=== PATIENT | male | born 1950 | race Caucasian/White ===

== ENCOUNTER 2017-05-08 11:54 | Inpatient (IN) | payer BC ==
[2017-05-08] VITALS (10 sets, daily range): BP systolic 150–182; BP diastolic 81–107; PULSE 64–98; RESP 16–22; TEMP 97.6–98.1; O2SAT 95–99
[~2017-05-08] VITALS: Ht 175.3 cm; Wt 75.0 kg
[~2017-05-08 11:54] MED LIST: AMLO5TAB2 PO; BLOOD GLUCOSE M1 KIT; GLUCTES27 SQ; HYDR12.56 PO; LANCETS1 MI1 SQ
[2017-05-08] MEDS ORDERED: SODIUM CHLOR 0.9% 1000 ML INJ 1,000 ML IV ONE (12:32)
--- NOTE | 2017-05-08 12:35 | PD ---
HPI Chief Complaint: General Weakness Time Seen by Provider: 12:20 Travel History International Travel<30 days: No Contact w/Intl Traveler<30days: No Traveled to known affect area: No History of Present Illness HPI 67-year-old male presents to the emergency department for evaluation of headache , dizziness, syncopal episodes. Patient states he had the influenza vaccination on , May 02, 2017. He states he felt fine at that time. However, the next day, he started getting a left-sided headache with nausea and vomiting as well as dizziness. He states on Saturday, he woke up in the morning, got out of bed and states that he "blacked out". He states that he got up and had another syncopal episode. Patient states that he went to the bathroom and vomited several times. Patient denies any history of similar symptoms in the past. He states that yesterday was the first time that he was able to get up and walk as well as not vomit. Patient states the dizziness is worse with movement. He states it feels like the room is spinning around him. He states the dizziness is relieved if he lays still. Patient denies any syncopal episodes since Saturday, 4 days ago. No vomiting in the past 2 days. Patient states the headache is currently 3/10. He has taken Advil with improvement in the headache. Patient denies any fevers or chills. He denies any chest pain. He states he will get short of breath with the dizziness. He denies any abdominal pain. No constipation or diarrhea. Patient reports history of hypertension and is currently on amlodipine and hydrochlorothiazide. He reports history prediabetes, but is not currently on any diabetic medications and is controlled with diet and exercise. PFSH Past Medical History Cardiovascular Problems: Yes (htn) Cerebrovascular Accident: No Coronary Artery Disease: No Diabetes: No Dialysis: No Diminished Hearing: No Hypertension: Yes Tetanus Vaccination: > 5 Years Influenza Vaccination: Yes Social History Alcohol Use: Yes (ocassionally) Tobacco Use: No (quit) Substance Use: No Allergies-Medications (Allergen,Severity, Reaction): Coded Allergies: No Known Allergies (Verified Adverse Reaction, Unknown, 05/08/17) Reported Meds & Prescriptions Reported Meds & Active Scripts Active Amlodipine (Amlodipine Besylate) 5 Mg Tab 5 Mg PO DAILY Hydrochlorothiazide 12.5 Mg Tab 12.5 Mg PO DAILY Review of Systems Except as stated in HPI: all other systems reviewed are Neg Physical Exam Narrative GENERAL: Well-nourished, well-developed male patient, ambulatory. Afebrile. SKIN: Focused skin assessment warm/dry. HEAD: Normocephalic. Atraumatic. EYES: No scleral icterus. No injection or drainage. PERRLA. EOM intact. ENT: Mucosa pink and moist. No erythema or exudates. No uvular edema. No uvular , palatal, or tonsillar deviation. Airway patent. Nasal turbinates appear normal without nasal blood, purulent drainage or septal hematoma. Bilateral tympanic membranes are clear without erythema or perforation. NECK: Supple, trachea midline. No JVD or lymphadenopathy. CARDIOVASCULAR: Regular rate and rhythm without murmurs, gallops, or rubs. RESPIRATORY: Breath sounds equal bilaterally. No accessory muscle use. Lungs sounds are clear to auscultation. GASTROINTESTINAL: Abdomen soft, non-tender, nondistended. MUSCULOSKELETAL: No cyanosis, or edema. Bilateral upper and lower extremity strength 5/5. All extremities are neurovascularly intact BACK: Nontender without obvious deformity. No CVA tenderness. NEUROLOGICAL: Awake and alert. Cranial nerves II through XII intact. Motor and sensory grossly within normal limits. Five out of 5 muscle strength in all muscle groups. Normal speech. Finger to nose is normal bilaterally. Heel-to- hartley is normal bilaterally. Data Data Last Documented VS Vital Signs Date Time Temp Pulse Resp B/P (MAP) Pulse Ox O2 Delivery O2 Flow Rate FiO2 05/08/17 14:16 97.9 72 17 165/85 (111) 98 Room Air Orders Orders Electrocardiogram (05/08/17 12:32) Complete Blood Count With Diff (05/08/17 12:32) Comprehensive Metabolic Panel (05/08/17 12:32) Magnesium (Mg) (05/08/17 12:32) Ckmb (Isoenzyme) Profile (05/08/17 12:32) Troponin I (05/08/17 12:32) Act Partial Throm Time (Ptt) (05/08/17 12:32) Prothrombin Time / Inr (Pt) (05/08/17 12:32) Urinalysis - C+S If Indicated (05/08/17 12:32) Ct Brain W/O Iv Contrast(Rout) (05/08/17 12:32) Ecg Monitoring (05/08/17 12:32) Iv Access Insert/Monitor (05/08/17 12:32) Oximetry (05/08/17 12:32) Meclizine (Antivert) (05/08/17 12:45) Ondansetron Inj (Zofran Inj) (05/08/17 12:45) Sodium Chloride 0.9% Flush (Ns Flush) (05/08/17 12:45) Sodium Chlor 0.9% 1000 Ml Inj (Ns 1000 M (05/08/17 12:32) Orthostatic Vital Signs (05/08/17 12:32) Metoclopramide Inj (Reglan Inj) (05/08/17 12:45) Diphenhydramine Inj (Benadryl Inj) (05/08/17 12:45) Mri Brain W&W/O Contrast (05/08/17 ) Dexamethasone Inj (Decadron Inj) (05/08/17 14:00) Consult Neurosurgery (05/08/17 ) Admit Order (Ed Use Only) (05/08/17 14:25) Labs Laboratory Tests Test 05/08/17 12:45 White Blood Count 10.4 TH/MM3 Red Blood Count 5.67 MIL/MM3 Hemoglobin 14.7 GM/DL Hematocrit 43.6 % Mean Corpuscular Volume 76.9 FL Mean Corpuscular Hemoglobin 26.0 PG Mean Corpuscular Hemoglobin Concent 33.7 % Red Cell Distribution Width 15.2 % Platelet Count 260 TH/MM3 Mean Platelet Volume 8.3 FL Neutrophils (%) (Auto) 80.6 % Lymphocytes (%) (Auto) 11.9 % Monocytes (%) (Auto) 7.2 % Eosinophils (%) (Auto) 0.1 % Basophils (%) (Auto) 0.2 % Neutrophils # (Auto) 8.4 TH/MM3 Lymphocytes # (Auto) 1.2 TH/MM3 Monocytes # (Auto) 0.7 TH/MM3 Eosinophils # (Auto) 0.0 TH/MM3 Basophils # (Auto) 0.0 TH/MM3 CBC Comment DIFF FINAL Differential Comment Prothrombin Time 11.1 SEC Prothromb Time International Ratio 1.0 RATIO Activated Partial Thromboplast Time 25.5 SEC Blood Urea Nitrogen 23 MG/DL Creatinine 1.48 MG/DL Random Glucose 250 MG/DL Total Protein 8.6 GM/DL Albumin 3.3 GM/DL Calcium Level 9.5 MG/DL Magnesium Level 2.0 MG/DL Alkaline Phosphatase 85 U/L Aspartate Amino Transf (AST/SGOT) 23 U/L Alanine Aminotransferase (ALT/SGPT) 24 U/L Total Bilirubin 0.4 MG/DL Sodium Level 132 MEQ/L Potassium Level 3.3 MEQ/L Chloride Level 98 MEQ/L Carbon Dioxide Level 22.0 MEQ/L Anion Gap 12 MEQ/L Estimat Glomerular Filtration Rate 48 ML/MIN Total Creatine Kinase 75 U/L Troponin I LESS THAN 0.02 NG/ML MDM Medical Decision Making Medical Screen Exam Complete: Yes Emergency Medical Condition: Yes Medical Record Reviewed: Yes Interpretation(s) CT brain - CONCLUSION: 1. Large area of low attenuation throughout the left cerebellum concerning for underlying mass and adjacent vasogenic edema. Acute infarction is felt to be less likely. Contrasted MRI recommended. 2. Chronic ischemic small vessel vasculopathy. Differential Diagnosis Vertigo versus intracranial abnormality versus electrolyte abnormality versus dehydration versus ACS Narrative Course 67-year-old male presents to the emergency department for evaluation of dizziness, headache, vomiting, syncopal episode 2. EKG, CBC, CMP, magnesium, CK, troponin, PT/INR, PTT, UA are ordered and pending. CT of the brain is ordered and pending. Orthostatic vital signs are ordered and pending. Patient is given normal saline 1 L IV bolus, Reglan 10 mg IV, Benadryl 25 mg IV. Patient is given meclizine 25 mg by mouth. EKG shows sinus rhythm, heart rate 73, no acute ST changes. CBC shows no acute abnormality. CMP shows slight hypokalemia at 3.3, BUN 23, creatinine 1.48, glucose 250. Magnesium is 2.0. CK is 75. Troponin is less than 0.02. Coags are unremarkable. UA is pending. CT of the brain shows large area of low attenuation throughout the left cerebellum concerning for underlying mass and adjacent vasogenic edema. Acute infarction is felt to be less likely. Contrasted MRI recommended; Chronic ischemic small vessel vasculopathy. 1400 - I spoke with ALEJANDRA Beckford for Dr. Story, neurosurgeon. She recommends admit to critical care, [facility], consult Dr. Story. Patient is given Decadron 10 mg IV. MRI with and without contrast is ordered and pending. Dr. Chu accepted admission. Diagnosis Primary Impression: Cerebellar mass Admitting Information Admitting Physician Requests: Admit Erica Villagran May 08, 2017 12:35
[2017-05-08] MEDS ORDERED: SODIUM CHLORIDE 0.9% FLUSH 10 ML FLUSH IVF PRN (12:45)
[2017-05-08] MEDS ORDERED: METOCLOPRAMIDE HCL 10 MG/2 ML VIAL IV PUSH ONE (12:45)
[2017-05-08] MEDS ORDERED: ONDANSETRON HCL 4 MG/2 ML VIAL IVP ONE (12:45)
[2017-05-08] MEDS ORDERED: diphenhydrAMINE HCL 50 MG/ML VIAL IV PUSH ONE (12:45)
[2017-05-08] MEDS ORDERED: MECLIZINE HCL 25 MG TAB PO ONE (12:45)
[2017-05-08 13:26] LABS: AUTOMATED NEUTROPHIL # 8.4 TH/MM3 (1.8-7.7); BASOPHIL % 0.2 % (0.0-2.0); EOSINOPHIL % 0.1 % (0.0-4.0); HEMATOCRIT 43.6 % (39.0-51.0); HEMOGLOBIN 14.7 GM/DL (13.0-17.0); LYMPH % 11.9 % (9.0-44.0); LYMPHOCYTE # 1.2 TH/MM3 (1.0-4.8); MEAN CELL VOLUME 76.9 FL (80.0-100.0); MEAN CORPUSCULAR HGB CONC 33.7 % (32.0-36.0); MEAN PLATELET VOLUME 8.3 FL (7.0-11.0); MONO % 7.2 % (0.0-8.0); MONOCYTE # 0.7 TH/MM3 (0-0.9); NEUT % 80.6 % (16.0-70.0); PLATELET COUNT 260 TH/MM3 (150-450); RED BLOOD COUNT 5.67 MIL/MM3 (4.50-5.90); RED CELL DISTRIBUTION WIDTH 15.2 % (11.6-17.2); WHITE BLOOD COUNT 10.4 TH/MM3 (4.0-11.0)
[2017-05-08 13:38] LABS: ALBUMIN 3.3 GM/DL (3.4-5.0); ALT (GPT) 24 U/L (12-78); AST (GOT) 23 U/L (15-37); BLOOD UREA NITROGEN 23 MG/DL (7-18); CALCIUM 9.5 MG/DL (8.5-10.1); CHLORIDE 98 MEQ/L (98-107); CREATININE 1.48 MG/DL (0.60-1.30); GLOMERULAR FILTRATION RATE 48 ML/MIN (>89); GLUCOSE,RANDOM 250 MG/DL (74-106); SODIUM (NA) 132 MEQ/L (136-145)
[2017-05-08 13:42] LABS: ALKALINE PHOSPHATASE 85 U/L (45-117); TOTAL BILIRUBIN ADULT 0.4 MG/DL (0.2-1.0); TOTAL PROTEIN 8.6 GM/DL (6.4-8.2); TROPONIN I LESS THAN 0.02 NG/ML (0.02-0.05)
[2017-05-08 13:46] LABS: PROTHROMBIN TIME - PATIENT 11.1 SEC (9.8-11.6)
--- NOTE | 2017-05-08 13:54 | RADRPT ---
EXAM DATE/TIME: 05/08/2017 13:21 [facility] COMPARISON: No previous studies available for comparison. INDICATIONS : Nausea, vomiting, syncope after getting flu shot 4 days ago RADIATION DOSE: 56.35 CTDIvol (mGy) MEDICAL HISTORY : Hypertension. SURGICAL HISTORY : None. ENCOUNTER: Initial ACUITY: 4 - 6 days PAIN SCALE: 0/10 LOCATION: cranial TECHNIQUE: Multiple contiguous axial images were obtained of the head. Using automated exposure control and adj ustment of the mA and/or kV according to patient size, radiation dose was kept as low as reasonably a chievable to obtain optimal diagnostic quality images. DICOM format image data is available electro nically for review and comparison. FINDINGS: CEREBRUM: The ventricles are normal for age. Scattered areas of low attenuation throughout the white matter. N o evidence of midline shift, mass lesion, hemorrhage or acute infarction. No extra-axial fluid colle ctions are seen. POSTERIOR FOSSA: Large area of low attenuation in the left cerebellum. Slight mass effect with slight compression upon the fourth ventricle. EXTRACRANIAL: The visualized portion of the orbits is intact. SKULL: The calvaria is intact. No evidence of skull fracture. CONCLUSION: 1. Large area of low attenuation throughout the left cerebellum concerning for underlying mass and ad jacent vasogenic edema. Acute infarction is felt to be less likely. Contrasted MRI recommended. 2. Chronic ischemic small vessel vasculopathy. Benedicto Mabry MD on May 08, 2017 at 13:50 Board Certified Radiologist. This report was verified electronically.
[2017-05-08] MEDS ORDERED: DEXAMETHASONE SOD PHOS 20 MG/5 ML VIAL IV PUSH ONE (14:00)
[2017-05-08] MEDS ORDERED: amLODIPine BESYLATE 5 MG TAB PO SCH (14:30)
[2017-05-08] MEDS ORDERED: HYDROCHLOROTHIAZIDE 12.5 MG CAP PO SCH (14:30)
[2017-05-08] MEDS ORDERED: SODIUM CHLOR 0.9% 1000 ML INJ 1,000 ML IV SCH (14:31)
--- NOTE | 2017-05-08 14:36 | HHI.HP ---
HPI Service Critical Care Medicine Primary Care Physician LEESA Cordero Admission Diagnosis mass left cerebellum Diagnosis: (1) Headache Diagnosis: Principal (2) Dizziness Diagnosis: Principal (3) Cerebellar mass Diagnosis: Principal Chief Complaint: Headache and dizziness, syncopre. Travel History International Travel<30 Days: No Contact w/Intl Traveler <30 Da: No Traveled to Known Affected Are: No History of Present Illness 69 y/o man has developed syncope and dizziness associated with a headache. CT head reveals large left posterior fossa mass. Past Family Social History Allergies: Coded Allergies: No Known Allergies (Verified Allergy, Unknown, 05/08/17) Past Medical History Past Medical History Cardiovascular Problems: Yes (htn) Cerebrovascular Accident: No Coronary Artery Disease: No Diabetes: No Dialysis: No Diminished Hearing: No Hypertension: Yes Tetanus Vaccination: > 5 Years Influenza Vaccination: Yes Social History Alcohol Use: Yes (ocassionally) Tobacco Use: No (quit) Substance Use: No Allergies-Medications Allergies-Medications (Allergen,Severity, Reaction): Coded Allergies: No Known Allergies (Verified Adverse Reaction, Unknown, 05/08/17) Reported Meds & Prescriptions Reported Meds & Active Scripts Active Amlodipine (Amlodipine Besylate) 5 Mg Tab 5 Mg PO DAILY Hydrochlorothiazide 12.5 Mg Tab 12.5 Mg PO DAILY Physical Exam Vital Signs Vital Signs Date Time Temp Pulse Resp B/P (MAP) Pulse Ox O2 Delivery O2 Flow Rate FiO2 05/08/17 14:16 97.9 72 17 165/85 (111) 98 Room Air 05/08/17 12:46 17 99 Room Air 05/08/17 12:45 76 17 167/81 (109) 80 16 158/82 (107) 76 17 150/91 (110) 05/08/17 12:11 86 17 05/08/17 11:58 97.6 98 22 179/107 (131) 98 Physical Exam PE: HEAD: Normocephalic. Atraumatic. EYES: No scleral icterus. No injection or drainage. PERRLA. EOM intact. ENT: Mucosa pink and moist. No erythema or exudates. No uvular edema. No uvular , palatal, or tonsillar deviation. Airway patent. Nasal turbinates appear normal without nasal blood, purulent drainage or septal hematoma. Bilateral tympanic membranes are clear without erythema or perforation. NECK: Supple, trachea midline. Airway widely patent. CARDIOVASCULAR: Regular rate and rhythm without murmurs, gallops, or rubs. No JVD. RESPIRATORY: Breath sounds equal bilaterally. No accessory muscle use. Lungs sounds clear. No adventitious sounds. GASTROINTESTINAL: Abdomen soft, non-tender, nondistended. BS active. MUSCULOSKELETAL: No cyanosis, or edema. Well perfsued. NEUROLOGICAL: Awake and alert. Cranial nerves II through XII intact. Motor and sensory grossly within normal limits. Five out of 5 muscle strength in all muscle groups. Normal speech. Finger to nose is normal bilaterally. Heel-to- hartley is normal bilaterally. Bilateral upper and lower extremity strength 5/5. Laboratory Laboratory Tests Test 05/08/17 12:45 White Blood Count 10.4 Red Blood Count 5.67 Hemoglobin 14.7 Hematocrit 43.6 Mean Corpuscular Volume 76.9 Mean Corpuscular Hemoglobin 26.0 Mean Corpuscular Hemoglobin Concent 33.7 Red Cell Distribution Width 15.2 Platelet Count 260 Mean Platelet Volume 8.3 Neutrophils (%) (Auto) 80.6 Lymphocytes (%) (Auto) 11.9 Monocytes (%) (Auto) 7.2 Eosinophils (%) (Auto) 0.1 Basophils (%) (Auto) 0.2 Neutrophils # (Auto) 8.4 Lymphocytes # (Auto) 1.2 Monocytes # (Auto) 0.7 Eosinophils # (Auto) 0.0 Basophils # (Auto) 0.0 CBC Comment DIFF FINAL Differential Comment Prothrombin Time 11.1 Prothromb Time International Ratio 1.0 Activated Partial Thromboplast Time 25.5 Blood Urea Nitrogen 23 Creatinine 1.48 Random Glucose 250 Total Protein 8.6 Albumin 3.3 Calcium Level 9.5 Magnesium Level 2.0 Alkaline Phosphatase 85 Aspartate Amino Transf (AST/SGOT) 23 Alanine Aminotransferase (ALT/SGPT) 24 Total Bilirubin 0.4 Sodium Level 132 Potassium Level 3.3 Chloride Level 98 Carbon Dioxide Level 22.0 Anion Gap 12 Estimat Glomerular Filtration Rate 48 Total Creatine Kinase 75 Troponin I LESS THAN 0.02 Result Diagram: 05/08/17 1245 05/08/17 1245 Caprini VTE Risk Assessment Caprini VTE Risk Assessment: Mod/High Risk (score >= 2) Caprini Risk Assessment Model Point Value = 1 Point Value = 2 Point Value = 3 Point Value = 5 Age 41-60 Minor surgery BMI > 25 kg/m2 Swollen legs Varicose veins or History of unexplained or recurrent spontaneous Oral contraceptives or hormone replacement Sepsis (< 1 month) Serious lung disease, including pneumonia (< 1 month) Abnormal pulmonary function Acute myocardial infarction Congestive heart failure (< 1 month) History of inflammatory bowel disease Medical patient at bed rest Age 61-74 Arthroscopic surgery Major open surgery (> 45 min) Laparoscopic surgery (> 45 min) Malignancy Confined to bed (> 72 hours) Immobilizing plaster cast Central venous access Age >= 75 History of VTE Family history of VTE Factor V Leiden Prothrombin [id number] Lupus anticoagulant Anticardiolipin antibodies Elevated serum homocysteine Heparin-induced thrombocytopenia Other congenital or acquired thrombophilia Stroke (< 1 month) Elective arthroplasty Hip, pelvis, or leg fracture Acute spinal cord injury (< 1 month) Prophylaxis Regimen Total Risk Factor Score Risk Level Prophylaxis Regimen 0-1 Low Early ambulation 2 Moderate Order ONE of the following: *Sequential Compression Device (SCD) *Heparin 5000 units SQ BID 3-4 Higher Order ONE of the following medications: *Heparin 5000 units SQ TID *Enoxaparin/Lovenox 40 mg SQ daily (WT < 150 kg, CrCl > 30 mL/min) *Enoxaparin/Lovenox 30 mg SQ daily (WT < 150 kg, CrCl > 10-29 mL/min) *Enoxaparin/Lovenox 30 mg SQ BID (WT < 150 kg, CrCl > 30 mL/min) AND/OR *Sequential Compression Device (SCD) 5 or more Highest Order ONE of the following medications: *Heparin 5000 units SQ TID (Preferred with Epidurals) *Enoxaparin/Lovenox 40 mg SQ daily (WT < 150 kg, CrCl > 30 mL/min) *Enoxaparin/Lovenox 30 mg SQ daily (WT < 150 kg, CrCl > 10-29 mL/min) *Enoxaparin/Lovenox 30 mg SQ BID (WT < 150 kg, CrCl > 30 mL/min) AND *Sequential Compression Device (SCD) Assessment and Plan Problem List: (1) Cerebellar mass ICD Code: G93.89 - Other specified disorders of brain Status: Acute (2) Dizziness ICD Code: R42 - Dizziness and giddiness (3) Headache ICD Code: R51 - Headache Assessment and Plan Plan: 1. Mannitol. 2. Decadron. 3. Seizure precautions. 4. CT for somnolence. 5. Pepcid. 6. Avid chemical DVT px. 7. SCDs. Overall impression: New large left cerebellar mass. Workup in progress. Homar Chu MD May 08, 2017 14:36
[2017-05-08] MEDS ORDERED: CHLORHEXIDINE GLUCONATE 2 % 1 PACK (2 CLOTHS) TOP PRN (14:45)
[2017-05-08] MEDS ORDERED: ONDANSETRON HCL 4 MG/2 ML VIAL IV PUSH PRN (14:45)
[2017-05-08] MEDS ORDERED: MANNITOL INJ 250 ML IV ONE ×2 (14:45)
[2017-05-08] MEDS ORDERED: SODIUM CHLORIDE 0.9% FLUSH 10 ML FLUSH IV FLUSH PRN (14:45)
[2017-05-08] MEDS ORDERED: MISCELLANEOUS NURSING INFORMATION XX SCH (14:45)
[2017-05-08] MEDS ORDERED: ACETAMINOPHEN 325 MG TAB PO PRN (14:45)
[2017-05-08] MEDS ORDERED: RESP: ALBUTEROL 2.5 MG/IPRATROPIUM 0.5 MG NEB (PRN) INH (14:45)
[2017-05-08] MEDS ORDERED: BISACODYL 10 MG SUPP RECTAL PRN (14:45)
[2017-05-08] MEDS ORDERED: MAGNESIUM HYDROXIDE SUSP 30 ML CUP PO PRN (14:45)
[2017-05-08] MEDS ORDERED: LACTULOSE SYRUP 20 GM/30 ML CUP PO PRN (14:45)
[2017-05-08] MEDS ORDERED: SENNOSIDES 8.6 MG TAB PO PRN (14:45)
[2017-05-08 15:05] LABS: BACTERIA, URINE FEW /hpf; BILIRUBIN, URINE NEG (NEG); BLOOD, URINE SMALL (NEG); GLUCOSE,URINE NEG (NEG); KETONE, URINE NEG (NEG); NITRITE,URINE NEG (NEG); PH, URINE 6.5 (5.0-8.5); URINE COLOR LIGHT-YELLOW (YELLW/STRAW); URINE LEUKOCYTE ESTERASE LARGE (NEG)
[2017-05-08] MEDS ORDERED: GADODIAMIDE PF 287 MG/ML 5 ML VIAL (for RAD MRI) IV PUSH ONE (15:39)
--- NOTE | 2017-05-08 16:11 | RADRPT ---
EXAM DATE/TIME: 05/08/2017 15:07 [facility] COMPARISON: CT BRAIN W/O CONTRAST, May 08, 2017, 13:21. INDICATIONS : Mass. CONTRAST: 15 cc Omniscan (gadodiamide) IV MEDICAL HISTORY : Hypertension. SURGICAL HISTORY : Left leg. ENCOUNTER: Initial ACUITY: 2 day PAIN SCORE: 2/10 LOCATION: head TECHNIQUE: Multiplanar, multisequence MRI of the brain was performed both prior to and following the administrat ion of paramagnetic contrast. FINDINGS: There is an enlarged area of restricted diffusion involving the left cerebellar hemisphere, PICA dist ribution. The right cerebellar hemisphere is unremarkable. There is no supratentorial restricted diffusion Moderate periventricular white matter changes are noted. Ventricle size is appropriate. There are n o extra-axial fluid collections appreciated. There is minimal gyriform enhancement left cervical hemisphere thought to be related to subacute infa rct. Mass or artery is small. CONCLUSION: Subacute infarct left cerebellar hemisphere PICA distribution with minimal mass effect on the fourth ventricle. MRI could be used to follow to assure this is resolving as an infarct. Mtaheus Walsh MD FACR on May 08, 2017 at 16:06 Board Certified Radiologist. This report was verified electronically.
--- NOTE | 2017-05-08 16:25 | PD.CONS ---
(London Story MD) HPI Consult Requested By Primary Care Physician LEESA Cordero (London Story MD) Service NRS Consult Requested By ED PHysician Reason for Consult possible cerebellar mass History of Present Illness Mr. Segura is a 67 year old male who comes today with complaints of dizziness and gait difficulties. He reports he received flu vaccine on . The following day he complained of nausea and not feeling well. Saturday he had a syncopal episode and was not able to walk. He has since been having difficulty walking and progressive headaches. He denies focal weakness, dysarthria, dysphagia, seizures, fevers or chills. An initial CT Head showed signal changes in the left cerebellar possible mass. An MRI w/wo contrast shows subacute ischemic infarct without evidence of mass lesions, but with mass effect on the fourth ventricle. A neurosurgical evaluation was requested. (Neris Glover) Review of Systems Constitutional: COMPLAINS OF: Dizziness, DENIES: Fever, Chills Eyes: DENIES: Diplopia, Vision loss Respiratory: DENIES: Apneas Cardiovascular: DENIES: Chest pain Gastrointestinal: COMPLAINS OF: Nausea, DENIES: Abdominal pain Genitourinary: DENIES: Urinary incontinence Neurologic: COMPLAINS OF: Abnormal gait, Headache, Poor Balance Psychiatric: DENIES: Hallucinations (Neris Glover) Past Family Social History Allergies: Coded Allergies: No Known Allergies (Verified Allergy, Unknown, 05/08/17) Past Medical History Hypertension chronic right shoulder and cervical pain Reported Medications reviewed EMR Active Ordered Medications Current Medications Medications (Trade) Dose Ordered Sig/Monica Route PRN Reason Start Time Stop Time Status Last Admin Dose Admin Sodium Chloride 1,000 ml @ 10 mls/hr Q24H IV 05/08/17 14:31 05/08/17 15:38 Sodium Chloride (NS Flush) 2 ml UNSCH PRN IV FLUSH FLUSH AFTER USING IV ACCESS 05/08/17 14:45 Sodium Chloride (NS Flush) 2 ml BID IV FLUSH 05/08/17 21:00 Acetaminophen (Tylenol) 650 mg Q6H PRN PO PAIN 1-10 AND/OR FEVER >101F 05/08/17 14:45 Pantoprazole Sodium (Protonix) 40 mg DAILY PO 05/09/17 09:00 Ondansetron HCl (Zofran Inj) 4 mg Q6H PRN IV PUSH NAUSEA OR VOMITING 05/08/17 14:45 Albuterol/ Ipratropium (Duoneb Neb) 1 ampule Q4HR NEB PRN INH WHEEZING 05/08/17 14:45 Miscellaneous Information 1 Q361D XX 05/08/17 14:45 Chlorhexidine Gluconate (Chlorhexidine 2% Cloth) 3 pack Taper DAILY@04 TOP 05/09/17 04:00 05/05/18 03:59 Chlorhexidine Gluconate (Chlorhexidine 2% Cloth) 3 pack UNSCH PRN TOP HYGIENIC CARE 05/08/17 14:45 Senna/Docusate Sodium (Alice-Colace) 1 tab BID PO 05/08/17 21:00 Magnesium Hydroxide (Milk Of Magnesia Liq) 30 ml Q12H PRN PO Mild constipation 05/08/17 14:45 Sennosides (Senokot) 17.2 mg Q12H PRN PO Moderate constipation 05/08/17 14:45 Bisacodyl (Dulcolax Supp) 10 mg DAILY PRN RECTAL SEVERE CONSITIPATION 05/08/17 14:45 Lactulose (Lactulose Liq) 30 ml DAILY PRN PO SEVERE CONSITIPATION 05/08/17 14:45 Dexamethasone Sodium Phosphate (Decadron Inj) 4 mg Q6H IV PUSH 05/08/17 20:00 Amlodipine Besylate (Norvasc) 5 mg DAILY PO 05/09/17 09:00 Hydrochlorothiazide (Microzide) 12.5 mg DAILY PO 05/09/17 09:00 Social History 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 (Neris Glover) Physical Exam Vital Signs Vital Signs Date Time Temp Pulse Resp B/P (MAP) Pulse Ox O2 Delivery O2 Flow Rate FiO2 05/08/17 15:40 97.7 68 17 166/88 (114) 99 Room Air 05/08/17 14:16 97.9 72 17 165/85 (111) 98 Room Air 05/08/17 12:46 17 99 Room Air 05/08/17 12:45 76 17 167/81 (109) 80 16 158/82 (107) 76 17 150/91 (110) 05/08/17 12:11 86 17 05/08/17 11:58 97.6 98 22 179/107 (131) 98 Physical Exam Mr. Segura is alert, awake and oriented to time, place and person. Speech is fluent. Follows commands well. Cranial nerve examination demonstrates the pupils to be equal, round, and reactive to light. Extra-ocular movements are intact. Facial motor and sensory function are normal and symmetrical. Gross hearing is intact, bilaterally. The uvula is midline and elevates symmetrically with the soft palate. Sternocleidomastoid and trapezius muscles have normal and symmetrical strength. Other cranial nerves are intact. Neck is soft and supple. Cervical spine has a full range of motion in anterior flexion, extension, lateral bending, and rotation without pain. There is no tenderness to palpation to the spinous processes or paraspinal muscles. Muscle testing reveals normal bulk and tone overall without rigidity, spasticity , fasciculations, or atrophy. 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 In the lower extremities, strength is 5/5 in both iliopsoas, quadriceps, hamstrings, plantar flexion, dorsiflexion, and extensor hallicus longus. Sensory examination is intact to light touch in both the upper and lower extremities, symmetrically. Deep tendon reflexes are 2+ and symmetrical in the biceps, triceps, and brachioradialis, bilaterally, in the upper extremities. In the lower extremities , the patellar and Achilles are 2+, bilaterally. There is a bilateral plantar flexion response. Hoffmanns sign is negative. There is no clonus or other abnormal reflexes noted. Cerebellar examination is intact on the right side, it shows dysmetria in left upper extremity . Laboratory Laboratory Tests Test 05/08/17 12:45 05/08/17 14:11 White Blood Count 10.4 Red Blood Count 5.67 Hemoglobin 14.7 Hematocrit 43.6 Mean Corpuscular Volume 76.9 Mean Corpuscular Hemoglobin 26.0 Mean Corpuscular Hemoglobin Concent 33.7 Red Cell Distribution Width 15.2 Platelet Count 260 Mean Platelet Volume 8.3 Neutrophils (%) (Auto) 80.6 Lymphocytes (%) (Auto) 11.9 Monocytes (%) (Auto) 7.2 Eosinophils (%) (Auto) 0.1 Basophils (%) (Auto) 0.2 Neutrophils # (Auto) 8.4 Lymphocytes # (Auto) 1.2 Monocytes # (Auto) 0.7 Eosinophils # (Auto) 0.0 Basophils # (Auto) 0.0 CBC Comment DIFF FINAL Differential Comment Prothrombin Time 11.1 Prothromb Time International Ratio 1.0 Activated Partial Thromboplast Time 25.5 Blood Urea Nitrogen 23 Creatinine 1.48 Random Glucose 250 Total Protein 8.6 Albumin 3.3 Calcium Level 9.5 Magnesium Level 2.0 Alkaline Phosphatase 85 Aspartate Amino Transf (AST/SGOT) 23 Alanine Aminotransferase (ALT/SGPT) 24 Total Bilirubin 0.4 Sodium Level 132 Potassium Level 3.3 Chloride Level 98 Carbon Dioxide Level 22.0 Anion Gap 12 Estimat Glomerular Filtration Rate 48 Total Creatine Kinase 75 Troponin I LESS THAN 0.02 Urine Color LIGHT-YELLOW Urine Turbidity HAZY Urine pH 6.5 Urine Specific Blanket 1.007 Urine Protein TRACE Urine Glucose (UA) NEG Urine Ketones NEG Urine Occult Blood SMALL Urine Nitrite NEG Urine Bilirubin NEG Urine Urobilinogen LESS THAN 2.0 Urine Leukocyte Esterase LARGE Urine RBC 17 Urine WBC 161 Urine Bacteria FEW Microscopic Urinalysis Comment CULTURE INDICATED Date/Time Source Procedure Growth Status 05/08/17 14:11 Urine Clean Catch Urine Culture Pending Received (London Story MD) Physical Exam Mr. Segura is alert, awake and oriented to time, place and person. Speech is fluent. Follows commands well. Cranial nerve examination demonstrates the pupils to be equal, round, and reactive to light. Extra-ocular movements are intact. Facial motor and sensory function are normal and symmetrical. Gross hearing is intact, bilaterally. The uvula is midline and elevates symmetrically with the soft palate. Sternocleidomastoid and trapezius muscles have normal and symmetrical strength. Other cranial nerves are intact. Neck is soft and supple. Cervical spine has a full range of motion in anterior flexion, extension, lateral bending, and rotation without pain. There is no tenderness to palpation to the spinous processes or paraspinal muscles. Muscle testing reveals normal bulk and tone overall without rigidity, spasticity , fasciculations, or atrophy. 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 In the lower extremities, strength is 5/5 in both iliopsoas, quadriceps, hamstrings, plantar flexion, dorsiflexion, and extensor hallicus longus. Sensory examination is intact to light touch in both the upper and lower extremities, symmetrically. Deep tendon reflexes are 2+ and symmetrical in the biceps, triceps, and brachioradialis, bilaterally, in the upper extremities. In the lower extremities , the patellar and Achilles are 2+, bilaterally. There is a bilateral plantar flexion response. Hoffmanns sign is negative. There is no clonus or other abnormal reflexes noted. Cerebellar examination is grossly intact, mild dysmetria in left finger to nose. (Neris Glover) Result Diagram: 05/08/17 1245 05/08/17 1245 Imaging Last [address] 05/08/17 1232 Signed Impressions: Service Date/Time: Monday, May 08, 2017 13:21 - CONCLUSION: 1. Large area of low attenuation throughout the left cerebellum concerning for underlying mass and adjacent vasogenic edema. Acute infarction is felt to be less likely. Contrasted MRI recommended. 2. Chronic ischemic small vessel vasculopathy. Benedicto Mabry MD Last Impressions Head CT 05/08/17 1232 Signed Impressions: Service Date/Time: Monday, May 08, 2017 13:21 - CONCLUSION: 1. Large area of low attenuation throughout the left cerebellum concerning for underlying mass and adjacent vasogenic edema. Acute infarction is felt to be less likely. Contrasted MRI recommended. 2. Chronic ischemic small vessel vasculopathy. Benedicto Mabry MD (Neris Glover) Attending Statement I have reviewed Mr Segura his clinical and radiological findings. He does not have a tumor. he suffered an infarction. I discussed with him the alternative methods of treatment including, conservative management or a ventriculostomy for CSF drainage. he does not want a ventricular catheter and he is requesting to maximize his nonoperative treatment I placed him on Mannitol, and will replace the CT in AM. CTA of vertebral and brain have been ordered to rule out dissection or occlusion. Pulmonary.aggressive pulmonary toilette, nasotracheal suction, and breathing treatments with nebulizers. Nutrition. Oral diet Renal. monitor closely urine output, BUN and creatinine Endocrine. Monitor serial Acu checks and SSI as needed in detail ID monitor for signs of infection Protonix for stress ulcer prophylaxis Beau hose and SCD's for DVT prophylaxis. Will defer further recommendations to upon completion of his workup The exam, history, and the medical decision-making described in the above note were completed with the assistance of the mid-level provider. I reviewed and agree with the findings presented. I attest that I had a [id number] encounter with the patient on the same day, and personally performed and documented my assessment and findings in the medical record. (London Story MD) London Story MD May 08, 2017 16:25 Neris Glover May 08, 2017 17:00
[2017-05-08] MEDS: DEXAMETHASONE SOD PHOS 4 MG/ML VIAL IV PUSH SCH (20:35)
[2017-05-08] MEDS: DOCUSATE SODIUM 50 MG/SENNA 8.6 MG TAB PO SCH (20:35)
[2017-05-08] MEDS: SODIUM CHLORIDE 0.9% FLUSH 10 ML FLUSH IV FLUSH SCH (21:00)
[2017-05-08] MEDS: MANNITOL 12.5 GM/50 ML VIAL IV SCH (21:58)
[2017-05-09] VITALS (13 sets, daily range): BP systolic 130–163; BP diastolic 75–95; PULSE 69–94; RESP 16–23; TEMP 97.5–98; O2SAT 95–97
[2017-05-09] MEDS: DEXAMETHASONE SOD PHOS 4 MG/ML VIAL IV PUSH SCH ×4 (02:54→21:23)
[2017-05-09] MEDS: CHLORHEXIDINE GLUCONATE 2 % 1 PACK (2 CLOTHS) TOP SCH (04:00)
[2017-05-09] MEDS ORDERED: IOHEXOL 350 MG/ML 10 ML VIAL (for RAD DIAG) IVCONTRAST ONE (04:10)
--- NOTE | 2017-05-09 04:21 | RADRPT ---
EXAM DATE/TIME: 05/09/2017 03:52 [facility] COMPARISON: MRI BRAIN W & W/O CONTRAST, May 08, 2017, 15:07. CT BRAIN W/O CONTRAST, May 08, 2017, 13: 21. INDICATIONS : Follow up stroke. RADIATION DOSE: 56.35 CTDIvol (mGy) MEDICAL HISTORY : Hypertension. SURGICAL HISTORY : None. ENCOUNTER: Subsequent ACUITY: 2 days PAIN SCALE: 3/10 LOCATION: cranial TECHNIQUE: Multiple contiguous axial images were obtained of the head. Using automated exposure control and adj ustment of the mA and/or kV according to patient size, radiation dose was kept as low as reasonably a chievable to obtain optimal diagnostic quality images. DICOM format image data is available electro nically for review and comparison. FINDINGS: Evolving hypodensity in the inferior left cerebellar hemisphere is again noted with mild mass effect upon the adjacent vermis and brainstem. There is no evidence of hemorrhage or an no new acute finding s are noted. The supratentorial brain is stable and benign in appearance. CONCLUSION: Evolving left cerebellar stroke. No new acute findings Terry Martini MD on May 09, 2017 at 4:16 Board Certified Radiologist. This report was verified electronically.
--- NOTE | 2017-05-09 04:46 | RADRPT ---
EXAM DATE/TIME: 05/09/2017 03:50 [facility] COMPARISON: CT BRAIN W/O CONTRAST, May 09, 2017, 3:52. INDICATIONS : Cephalgia. Evaluate for stroke. IV CONTRAST: 76 cc Omnipaque 350 (iohexol) IV ; Cumulative dose for multiple exams. RADIATION DOSE: 14.74 CTDIvol (mGy) ; Combined studies MEDICAL HISTORY : Hypertension. SURGICAL HISTORY : None. ENCOUNTER: Subsequent ACUITY: 2 days PAIN SCALE: 4/10 LOCATION: cranial TECHNIQUE: Volumetric scanning was performed using a multi-row detector CT scanner. The data was post processed with a variety of visualization algorithms including full volume maximum intensity projection, multi -planar sliding thin slab reformation, curved planar reformation, and surface rendering techniques. Using automated exposure control and adjustment of the mA and/or kV according to patient size, radiat ion dose was kept as low as reasonably achievable to obtain optimal diagnostic quality images. DICO M format image data is available electronically for review and comparison. FINDINGS: There is excellent visualization of the major intracranial arteries out to the second-order branch ve ssels. There is no evidence for aneurysm, vessel truncation or stenosis, and no evidence for vascula r malformation. The left vertebral artery is nondominant. The left PICA appears patent CONCLUSION: No acute [place] vascular findings Terry Martini MD on May 09, 2017 at 4:42 Board Certified Radiologist. This report was verified electronically.
[2017-05-09 05:20] LABS: BICARBONATE 24.9 MEQ/L (21.0-32.0); CALCIUM 8.9 MG/DL (8.5-10.1); CREATININE 1.28 MG/DL (0.60-1.30); MAGNESIUM 2.2 MG/DL (1.5-2.5); PHOSPHORUS 4.4 MG/DL (2.5-4.9)
--- NOTE | 2017-05-09 05:23 | RADRPT ---
EXAM DATE/TIME: 05/09/2017 03:50 [facility] COMPARISON: No previous studies available for comparison. INDICATIONS : Cephalgia. Evaluate for stroke. IV CONTRAST: 76 cc Omnipaque 350 (iohexol) IV ; Cumulative dose for multiple exams. RADIATION DOSE: 14.74 CTDIvol (mGy) ; Combined studies MEDICAL HISTORY : Hypertension. SURGICAL HISTORY : None. ENCOUNTER: Subsequent ACUITY: 2 days PAIN SCALE: 0/10 LOCATION: neck Elevated flow velocities and ICA/CCA ratios have been found to correlate with increased degrees of vessel stenosis, calculated as percentage of diameter relative to a normal segment of distal ICA/CCA. TECHNIQUE: Volumetric scanning was performed using a multirow detector CT scanner. The data was post processed with a variety of visualization algorithms including full-volume maximum intensity projection, multip lanar sliding thin-slab reformation, curved-planar reformation, and surface-rendering techniques. Us ing automated exposure control and adjustment of the mA and/or kV according to patient size, radiatio n dose was kept as low as reasonably achievable to obtain optimal diagnostic quality images. DICOM f ormat image data is available electronically for review and comparison. FINDINGS: AORTIC ARCH: There is a three-vessel origin of the great vessels from the aorta. No evidence of ostial narrowing. RIGHT CAROTID: There is mild eccentric soft and calcific plaquing involving the proximal right ICA with about 20-30% stenotic narrowing present. The obvious proximal disease, the vessel regains normal caliber and appe arance and is widely patent to the skull base. LEFT CAROTID: The common carotid artery is intact. The carotid bulb has a normal configuration without ulceration or narrowing. The internal carotid artery lumen is smooth without stenosis. The external carotid ar francisco is intact. VERTEBRALS: The left vertebral artery is diminutive and inconsistently opacified. The appearance could reflect a developmental appearance, however dissection would be an additional consideration. The right vertebra l is patent and unremarkable. CONCLUSION: No significant carotid stenosis. Abnormal appearance of the left vertebral artery which may be chronic/developmental or may reflect di ssection. Terry Martini MD on May 09, 2017 at 5:17 Board Certified Radiologist. This report was verified electronically.
[2017-05-09] MEDS: MANNITOL 12.5 GM/50 ML VIAL IV SCH ×4 (06:10→23:20)
[2017-05-09] MEDS: DOCUSATE SODIUM 50 MG/SENNA 8.6 MG TAB PO SCH ×2 (07:40→21:23)
[2017-05-09] MEDS: SODIUM CHLORIDE 0.9% FLUSH 10 ML FLUSH IV FLUSH SCH (07:42)
--- NOTE | 2017-05-09 09:05 | HHI.NSPN ---
(Neris Glover) Note Status Status: Progress Note (Neris Glover) Interval History Interval History Mr. Segura is a 67 year old male who comes today with complaints of dizziness and gait difficulties. He reports he received flu vaccine on . The following day he complained of nausea and not feeling well. Saturday he had a syncopal episode and was not able to walk. He has since been having difficulty walking and progressive headaches. He denies focal weakness, dysarthria, dysphagia, seizures, fevers or chills. An initial CT Head showed signal changes in the left cerebellar possible mass. An MRI w/wo contrast shows subacute ischemic infarct without evidence of mass lesions, but with mass effect on the fourth ventricle. A neurosurgical evaluation was requested. 05/09: feeling well, headaches much improved. f/u CT Head completed this morning. CTA H/N reports left vertebral?dissection. (Neris Glover) Labs, Micro, & Vital Signs Results Date Time Temp Pulse Resp B/P (MAP) Pulse Ox O2 Delivery O2 Flow Rate FiO2 05/09/17 06:00 76 05/09/17 04:00 73 05/09/17 03:00 98.0 80 20 160/88 (112) 95 05/09/17 02:00 80 05/09/17 00:00 83 05/09/17 00:00 98.0 84 23 154/95 (114) 95 05/08/17 22:00 83 05/08/17 22:00 98.1 87 18 152/92 (112) 95 05/08/17 20:00 98.1 87 18 152/92 (112) 95 05/08/17 20:00 75 05/08/17 20:00 98.1 87 18 152/92 (112) 95 05/08/17 19:00 98 Room Air 05/08/17 18:00 97.8 78 16 174/86 (115) 97 05/08/17 18:00 78 05/08/17 17:00 64 05/08/17 17:00 97.9 64 22 182/89 (120) 99 05/08/17 17:00 99 Room Air 05/08/17 16:30 97.8 77 16 153/81 (105) 99 05/08/17 15:40 97.7 68 17 166/88 (114) 99 Room Air 05/08/17 14:16 97.9 72 17 165/85 (111) 98 Room Air 05/08/17 12:46 17 99 Room Air 05/08/17 12:45 76 17 167/81 (109) 80 16 158/82 (107) 76 17 150/91 (110) 05/08/17 12:11 86 17 05/08/17 11:58 97.6 98 22 179/107 (131) 98 Constitutional Vital Signs Date Time Temp Pulse Resp B/P (MAP) Pulse Ox O2 Delivery O2 Flow Rate FiO2 05/09/17 06:00 76 05/09/17 04:00 73 05/09/17 03:00 98.0 80 20 160/88 (112) 95 05/09/17 02:00 80 05/09/17 00:00 83 05/09/17 00:00 98.0 84 23 154/95 (114) 95 05/08/17 22:00 83 05/08/17 22:00 98.1 87 18 152/92 (112) 95 05/08/17 20:00 98.1 87 18 152/92 (112) 95 05/08/17 20:00 75 05/08/17 20:00 98.1 87 18 152/92 (112) 95 05/08/17 19:00 98 Room Air 05/08/17 18:00 97.8 78 16 174/86 (115) 97 05/08/17 18:00 78 05/08/17 17:00 64 05/08/17 17:00 97.9 64 22 182/89 (120) 99 05/08/17 17:00 99 Room Air 05/08/17 16:30 97.8 77 16 153/81 (105) 99 05/08/17 15:40 97.7 68 17 166/88 (114) 99 Room Air 05/08/17 14:16 97.9 72 17 165/85 (111) 98 Room Air 05/08/17 12:46 17 99 Room Air 05/08/17 12:45 76 17 167/81 (109) 80 16 158/82 (107) 76 17 150/91 (110) 05/08/17 12:11 86 17 05/08/17 11:58 97.6 98 22 179/107 (131) 98 (Neris Glover) Review of Systems Constitutional: DENIES: Fever, Chills Cardiovascular: DENIES: Chest pain Gastrointestinal: DENIES: Nausea, Vomiting Neurologic: DENIES: Headache, Localized weakness (Neris Glover) Physical Exam Mr. Segura is alert, awake and oriented to time, place and person. Speech is fluent. Follows commands well. Cranial nerve examination demonstrates the pupils to be equal, round, and reactive to light. Extra-ocular movements are intact. Facial motor and sensory function are normal and symmetrical. Gross hearing is intact, bilaterally. The uvula is midline and elevates symmetrically with the soft palate. Sternocleidomastoid and trapezius muscles have normal and symmetrical strength. Other cranial nerves are intact. Neck is soft and supple. No meningismus or nuchal rigidity. 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 In the lower extremities, strength is 5/5 in both iliopsoas, quadriceps, hamstrings, plantar flexion, dorsiflexion. Sensory examination is intact to light touch in both the upper and lower extremities, symmetrically. Deep tendon reflexes are 2+ and symmetrical in the biceps, triceps, and brachioradialis, bilaterally, in the upper extremities. In the lower extremities , the patellar and Achilles are 2+, bilaterally. There is a bilateral plantar flexion response. Hoffmanns sign is negative. There is no clonus or other abnormal reflexes noted. Cerebellar examination is grossly intact, mild dysmetria in left finger to nose. (Neris Glover) Mr. Segura is alert, awake and oriented to time, place and person. Speech is fluent. Follows commands well. Cranial nerve examination demonstrates the pupils to be equal, round, and reactive to light. Extra-ocular movements are intact. Facial motor and sensory function are normal and symmetrical. Gross hearing is intact, bilaterally. The uvula is midline and elevates symmetrically with the soft palate. Sternocleidomastoid and trapezius muscles have normal and symmetrical strength. Other cranial nerves are intact. Neck is soft and supple. Cervical spine has a full range of motion in anterior flexion, extension, lateral bending, and rotation without pain. There is no tenderness to palpation to the spinous processes or paraspinal muscles. Muscle testing reveals normal bulk and tone overall without rigidity, spasticity , fasciculations, or atrophy. 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 In the lower extremities, strength is 5/5 in both iliopsoas, quadriceps, hamstrings, plantar flexion, dorsiflexion, and extensor hallicus longus. Sensory examination is intact to light touch in both the upper and lower extremities, symmetrically. Deep tendon reflexes are 2+ and symmetrical in the biceps, triceps, and brachioradialis, bilaterally, in the upper extremities. In the lower extremities , the patellar and Achilles are 2+, bilaterally. There is a bilateral plantar flexion response. Hoffmanns sign is negative. There is no clonus or other abnormal reflexes noted. Cerebellar examination is intact on the right side, it shows dysmetria in left upper extremity . (London Story MD) Medications Current Medications Current Medications Meclizine HCl (Antivert) 25 mg ONCE ONCE PO Last administered on 05/08/17 12: 48; Start 05/08/17 at 12:45; Stop 05/08/17 at 12:46; Status DC Ondansetron HCl (Zofran Inj) 4 mg ONCE ONCE IVP ; Start 05/08/17 at 12:45; Stop 05/08/17 at 12:45; Status DC Sodium Chloride (NS Flush) 2 ml UNSCH PRN IVF FLUSH AFTER USING IV ACCESS Last administered on 05/08/17 14:16; Start 05/08/17 at 12:45; Stop 05/08/17 at 14:56 ; Status DC Sodium Chloride 1,000 ml @ 1,000 mls/hr Q1H ONCE IV Last administered on 12:48; Start 05/08/17 at 12:32; Stop 05/08/17 at 13:31; Status DC Metoclopramide HCl (Reglan Inj) 10 mg ONCE ONCE IV PUSH Last administered on 05/08/17 12:49; Start 05/08/17 at 12:45; Stop 05/08/17 at 12:46; Status DC Diphenhydramine HCl (Benadryl Inj) 25 mg ONCE ONCE IV PUSH Last administered on 05/08/17 12:49; Start 05/08/17 at 12:45; Stop 05/08/17 at 12:46; Status DC Dexamethasone Sodium Phosphate (Decadron Inj) 10 mg ONCE ONCE IV PUSH Last administered on 05/08/17 14:16; Start 05/08/17 at 14:00; Stop 05/08/17 at 14:01 ; Status DC Amlodipine Besylate (Norvasc) 5 mg DAILY PO ; Start 05/08/17 at 14:30; Stop 05/08/17 at 15:54; Status DC Hydrochlorothiazide (Microzide) 12.5 mg DAILY PO ; Start 05/08/17 at 14:30; Stop 05/08/17 at 15:54; Status DC Sodium Chloride 1,000 ml @ 10 mls/hr Q24H IV Last administered on 05/08/17 15 :38; Start 05/08/17 at 14:31 Sodium Chloride (NS Flush) 2 ml UNSCH PRN IV FLUSH FLUSH AFTER USING IV ACCESS ; Start 05/08/17 at 14:45; Stop 05/09/17 at 16:25; Status DC Sodium Chloride (NS Flush) 2 ml BID IV FLUSH Last administered on 05/09/17 07: 42; Start 05/08/17 at 21:00; Stop 05/09/17 at 16:25; Status DC Acetaminophen (Tylenol) 650 mg Q6H PRN PO PAIN 1-10 AND/OR FEVER >101F; Start 05/08/17 at 14:45 Pantoprazole Sodium (Protonix) 40 mg DAILY PO Last administered on 05/09/17 09 :34; Start 05/09/17 at 09:00 Ondansetron HCl (Zofran Inj) 4 mg Q6H PRN IV PUSH NAUSEA OR VOMITING; Start at 14:45 Albuterol/ Ipratropium (Duoneb Neb) 1 ampule Q4HR NEB PRN INH WHEEZING; Start 05/08/17 at 14:45 Miscellaneous Information 1 Q361D XX ; Start 05/08/17 at 14:45 Chlorhexidine Gluconate (Chlorhexidine 2% Cloth) 3 pack Taper DAILY@04 TOP Last administered on 05/09/17 04:00; Start 05/09/17 at 04:00; Stop 05/05/18 at 03:59 Chlorhexidine Gluconate (Chlorhexidine 2% Cloth) 3 pack UNSCH PRN TOP HYGIENIC CARE; Start 05/08/17 at 14:45 Senna/Docusate Sodium (Alice-Colace) 1 tab BID PO Last administered on 07:40; Start 05/08/17 at 21:00 Magnesium Hydroxide (Milk Of Magnesia Liq) 30 ml Q12H PRN PO Mild constipation ; Start 05/08/17 at 14:45 Sennosides (Senokot) 17.2 mg Q12H PRN PO Moderate constipation; Start 05/08/17 at 14:45 Bisacodyl (Dulcolax Supp) 10 mg DAILY PRN RECTAL SEVERE CONSITIPATION; Start 05/08/17 at 14:45 Lactulose (Lactulose Liq) 30 ml DAILY PRN PO SEVERE CONSITIPATION; Start at 14:45 Mannitol 250 ml @ 250 mls/hr ONCE ONCE IV Last administered on 05/08/17 15: 39; Start 05/08/17 at 14:45; Stop 05/08/17 at 15:44; Status DC Dexamethasone Sodium Phosphate (Decadron Inj) 4 mg Q6H IV PUSH Last administered on 05/09/17 15:02; Start 05/08/17 at 20:00 Mannitol 250 ml @ 250 mls/hr ONCE ONCE IV ; Start 05/08/17 at 14:45; Stop 05/08/17 at 15:44; Status UNV Gadodiamide (Omniscan Pf Inj) 15 ml STK-MED ONCE IV PUSH Last administered on 05/08/17 15:39; Start 05/08/17 at 15:39; Stop 05/08/17 at 15:40; Status DC Amlodipine Besylate (Norvasc) 5 mg DAILY PO Last administered on 05/09/17 09: 33; Start 05/09/17 at 09:00 Hydrochlorothiazide (Microzide) 12.5 mg DAILY PO Last administered on 09:34; Start 05/09/17 at 09:00 Mannitol (Mannitol Inj) 25 gm Q6H IV Last administered on 05/09/17t 16:49; Start 05/08/17 at 22:00 Iohexol (Omnipaque 350 Inj) 76 ml STK-MED ONCE IVCONTRAST Last administered on 05/09/17t 04:10; Start 05/09/17 at 04:10; Stop 05/09/17 at 04:11; Status DC IV Flush (NS Flush) 2 ml BID IV FLUSH ; Start 05/09/17 at 21:00 IV Flush (NS Flush) 2 ml UNSCH PRN IV FLUSH FLUSH AFTER USING IV ACCESS; Start 05/09/17 at 16:30 Aspirin (Aspirin) 325 mg DAILY PO ; Start 05/09/17 at 16:30 Insulin Aspart (NovoLOG SUPPLEMENTAL SCALE) 1 ACHS SQ ; Start 05/09/17 at 17:00 Dextrose (D50w (Vial) Inj) 50 ml UNSCH PRN IV PUSH HYPOGLYCEMIA-SEE COMMENTS; Start 05/09/17 at 16:30 Glucagon (Glucagon Inj) 1 mg UNSCH PRN OTHER HYPOGLYCEMIA-SEE COMMENTS; Start 05/09/17 at 16:30 (London Story MD) Medical Decision Making MDM Remarks 67 y/o male with acute to subacute left cerebellar ischemic infarct, neuro exam stable (Neris Glover) MDM Remarks Last [address] 05/09/17 0600 Signed Impressions: Service Date/Time: May 03:52 - CONCLUSION: Evolving left cerebellar stroke. No new acute findings Terry Martini MD Head CT 05/08/17 1232 Signed Impressions: Service Date/Time: Monday, May 08, 2017 13:21 - CONCLUSION: 1. Large area of low attenuation throughout the left cerebellum concerning for underlying mass and adjacent vasogenic edema. Acute infarction is felt to be less likely. Contrasted MRI recommended. 2. Chronic ischemic small vessel vasculopathy. Benedicto Mabry MD Neck CTA 05/08/17 0000 Signed Impressions: Service Date/Time: May 03:50 - CONCLUSION: No significant carotid stenosis. Abnormal appearance of the left vertebral artery which may be chronic/developmental or may reflect dissection. Terry Martini MD Head CTA 05/08/17 0000 Signed Impressions: Service Date/Time: May 03:50 - CONCLUSION: No acute [place] [facility] [place] vascular findings Terry Martini MD Brain MRI 05/08/17 0000 Signed Impressions: Service Date/Time: Monday, May 08, 2017 15:07 - CONCLUSION: Subacute infarct left cerebellar hemisphere PICA distribution with minimal mass effect on the fourth ventricle. MRI could be used to follow to assure this is resolving as an infarct. Matheus Walsh MD FACR (London Story MD) Plan Plan Remarks awaiting neurology consultation consult vascular sx for ?vertebral artery dissection cont neuro checks SCDs and TEDs for dvt prophylaxis Protonix for GI prophylaxis Physical Therapy (Neris Glover) Plan Remarks Caprini VTE Risk Assessment Caprini Risk Assessment Model Point Value = 1 Point Value = 2 Point Value = 3 Point Value = 5 Age 41-60 Minor surgery BMI > 25 kg/m2 Swollen legs Varicose veins or History of unexplained or recurrent spontaneous Oral contraceptives or hormone replacement Sepsis (< 1 month) Serious lung disease, including pneumonia (< 1 month) Abnormal pulmonary function Acute myocardial infarction Congestive heart failure (< 1 month) History of inflammatory bowel disease Medical patient at bed rest Age 61-74 Arthroscopic surgery Major open surgery (> 45 min) Laparoscopic surgery (> 45 min) Malignancy Confined to bed (> 72 hours) Immobilizing plaster cast Central venous access Age >= 75 History of VTE Family history of VTE Factor V Leiden Prothrombin [id number] Lupus anticoagulant Anticardiolipin antibodies Elevated serum homocysteine Heparin-induced thrombocytopenia Other congenital or acquired thrombophilia Stroke (< 1 month) Elective arthroplasty Hip, pelvis, or leg fracture Acute spinal cord injury (< 1 month) Prophylaxis Regimen Total Risk Factor Score Risk Level Prophylaxis Regimen 0-1 Low Early ambulation 2 Moderate Order ONE of the following: *Sequential Compression Device (SCD) *Heparin 5000 units SQ BID 3-4 Higher Order ONE of the following medications: *Heparin 5000 units SQ TID *Enoxaparin/Lovenox 40 mg SQ daily (WT < 150 kg, CrCl > 30 mL/min) *Enoxaparin/Lovenox 30 mg SQ daily (WT < 150 kg, CrCl > 10-29 mL/min) *Enoxaparin/Lovenox 30 mg SQ BID (WT < 150 kg, CrCl > 30 mL/min) AND/OR *Sequential Compression Device (SCD) 5 or more Highest Order ONE of the following medications: *Heparin 5000 units SQ TID (Preferred with Epidurals) *Enoxaparin/Lovenox 40 mg SQ daily (WT < 150 kg, CrCl > 30 mL/min) *Enoxaparin/Lovenox 30 mg SQ daily (WT < 150 kg, CrCl > 10-29 mL/min) *Enoxaparin/Lovenox 30 mg SQ BID (WT < 150 kg, CrCl > 30 mL/min) AND *Sequential Compression Device (SCD) (London Story MD) Attending Statement I have reviewed Mr Segura CTA. He could suffer from a vertebral artery dissection. I have requested a consultation with a vascular surgeon Neurology consultation is pending Continue nonoperative treatment Continue Mannitol, Pulmonary continue.aggressive pulmonary toilette, nasotracheal suction, and breathing treatments with nebulizers. Nutrition. Oral diet Renal. monitor closely urine output, BUN and creatinine Endocrine. Monitor serial Acu checks and SSI as needed in detail ID monitor for signs of infection Continue Protonix for stress ulcer prophylaxis Continue Beau hose and SCD's for DVT prophylaxis. The exam, history, and the medical decision-making described in the above note were completed with the assistance of the mid-level provider. I reviewed and agree with the findings presented. I attest that I had a [id number] encounter with the patient on the same day, and personally performed and documented my assessment and findings in the medical record. (London Story MD) Neris Glover May 09, 2017 09:05 London Story MD May 09, 2017 17:18
--- NOTE | 2017-05-09 09:19 | HHI.CCPN ---
Subjective Remarks/Hospital Course 69 y/o man has developed syncope and dizziness associated with a headache. CT head reveals large left posterior fossa mass. 05/09: MRI looks like subacute cerebellar infarction. He protecst airway and swallows secretions well. Objective Vital Signs Date Time Temp Pulse Resp B/P (MAP) Pulse Ox O2 Delivery O2 Flow Rate FiO2 05/09/17 06:00 76 05/09/17 03:00 98.0 20 160/88 (112) 95 05/08/17 19:00 Room Air Intake and Output 05/09/17 05/09/17 05/10/17 08:00 16:00 00:00 Output Total 1500 ml Balance -1500 ml Result Diagram: 05/08/17 1245 05/09/17 0429 Objective Remarks PE: HEAD: Normocephalic. Atraumatic. EYES: No scleral icterus. No injection or drainage. PERRLA. EOM intact. ENT: Mucosa pink and moist. No erythema or exudates. No uvular edema. No uvular , palatal, or tonsillar deviation. Airway patent. Nasal turbinates appear normal without nasal blood, purulent drainage or septal hematoma. Bilateral tympanic membranes are clear without erythema or perforation. NECK: Supple, trachea midline. Airway widely patent. CARDIOVASCULAR: Regular rate and rhythm without murmurs, gallops, or rubs. No JVD. RESPIRATORY: Breath sounds equal bilaterally. No accessory muscle use. Lungs sounds clear. No adventitious sounds. GASTROINTESTINAL: Abdomen soft, non-tender, nondistended. BS active. MUSCULOSKELETAL: No cyanosis, or edema. Well perfsued. NEUROLOGICAL: Awake and alert. Motor and sensory grossly within normal limits. Five out of 5 muscle strength in all muscle groups. Normal speech. Bilateral upper and lower extremity strength 5/5. A/P Problem List: (1) Cerebellar mass ICD Code: G93.89 - Other specified disorders of brain Status: Acute (2) Dizziness ICD Code: R42 - Dizziness and giddiness (3) Headache ICD Code: R51 - Headache Assessment and Plan Plan: 1. Mannitol. 2. Decadron. 3. Seizure precautions. 4. CT for somnolence. 5. Pepcid. 6. Avid chemical DVT px. 7. SCDs. 8. Ambulation. Overall impression: New large left cerebellar mass, appears to be a subacute infarction. Homar Chu MD May 09, 2017 09:19
[2017-05-09] MEDS: amLODIPine BESYLATE 5 MG TAB PO SCH (09:33)
[2017-05-09] MEDS: HYDROCHLOROTHIAZIDE 12.5 MG CAP PO SCH (09:34)
[2017-05-09] MEDS: PANTOPRAZOLE SOD 40 MG DELAYED RELEASE TAB PO SCH (09:34)
--- NOTE | 2017-05-09 13:19 | EKG ---
Date Performed: 05/08/2017 Time Performed: 12:43:21 PTAGE: 67 years EKG: Sinus rhythm WITH SINUS ARRHYTHMIA POSSIBLE INFERIOR MYOCARDIAL INFARCTION BORDERLINE ECG NO PREVIOUS TRACING DOCTOR: Sanya Madsen Interpretating Date/Time 05/09/2017 13:15:20
[2017-05-09] MEDS ORDERED: GLUCAGON 1 MG/ML VIAL OTHER PRN (16:30)
[2017-05-09] MEDS ORDERED: SODIUM CHLORIDE 0.9% FLUSH 5 ML FLUSH IV FLUSH PRN (16:30)
[2017-05-09] MEDS ORDERED: DEXTROSE 50% IN WATER 50 ML VIAL(D50) IV PUSH PRN (16:30)
--- NOTE | 2017-05-09 16:57 | ECHRPT ---
Indication: CVA/TIA CONCLUSIONS Normal left ventricular size. Wall thickness is normal. The left ventricular systolic function is normal with an estimated ejection fraction in the range of 55-60%. BP: 160 / 88 HR: 80 Rhythm: MEASUREMENTS (Male / Female) Normal Values Technical Quality:Technically difficult study 2D ECHO LV Diastolic Diameter PLAX 3.6 cm 4.2 - 5.9 / 3.9 - 5.3 cm LV Systolic Diameter PLAX 2.8 cm IVS Diastolic Thickness 1.0 cm 0.6 - 1.0 / 0.6 - 0.9 cm LVPW Diastolic Thickness 0.9 cm 0.6 - 1.0 / 0.6 - 0.9 cm LV Relative Wall Thickness 0.5 DOPPLER Mitral E Point Velocity 68.1 cm/s Mitral A Point Velocity 88.4 cm/s Mitral E to A Ratio 0.8 TR Peak Velocity 145.0 cm/s TR Peak Gradient 8.4 mmHg FINDINGS LEFT VENTRICLE Normal left ventricular size. Wall thickness is normal. The left ventricular systolic function is normal with an estimated ejection fraction in the range of 55-60%. RIGHT VENTRICLE Normal right ventricular size and systolic function. LEFT ATRIUM The left atrial size is normal. RIGHT ATRIUM The right atrial size is normal. ATRIAL SEPTUM Normal atrial septal thickness without atrial level shunting by limited color doppler interrogation. AORTA The aortic root and proximal ascending aorta are normal in size on limited imaging. MITRAL VALVE Structurally normal mitral valve. No mitral valve stenosis or regurgitation. AORTIC VALVE Trileaflet aortic valve. No aortic valve stenosis or regurgitation. TRICUSPID VALVE Structurally normal tricuspid valve. No tricuspid valve stenosis or regurgitation. PULMONARY VALVE The pulmonary valve is not well visualized. VESSELS The inferior vena cava is normal in size. PERICARDIUM No pericardial effusion. Yoel Garcia MD (Electronically Signed) Final Date:09 May 2017 16:57
[2017-05-09] MEDS: INSULIN ASPART SUPPLEMENTAL SCALE SQ SCH ×2 (17:00→21:24)
[2017-05-09] MEDS: ASPIRIN 325 MG TAB PO SCH (17:13)
--- NOTE | 2017-05-09 18:06 | MB ---
cc: DANIEL DEL CID DATE OF CONSULTATION 05/09/17 REASON FOR CONSULTATION Cerebellar stroke. HISTORY OF PRESENT ILLNESS This is a very nice 67 year old man who noted the acute onset of severe dizziness yesterday. He had no other focal deficits. No focal weakness or numbness. PAST MEDICAL HISTORY 1. Recent flu vaccine a week ago 2. History of hypertension. ALLERGIES None known. MEDICATIONS Current, 1. Amlodipine. 2. Protonix. 3. Hydrochlorothiazide 4. Mannitol. 5. Dexamethasone. NEUROLOGIC EXAMINATION VITAL SIGNS: Blood pressure is 139/82, pulse is 90, respiratory rate 20, temperature 97.5 degrees. Higher cortical function - alert, oriented x3. Speech is normal. Cranial nerves are normal. Motor exam 5/5 strength of all groups in both upper and lower extremities. There is no drift. Fine motor skills within normal limits. Cerebellar testing - He does have dysmetria left upper extremity. IMAGING STUDIES CT of the brain shows a left cerebellar stroke. MRI of the brain subacute infarct left cerebral hemisphere with minimal mass effect of the fourth ventricle. No hemorrhage identified. CTA neck negative for any significant stenosis. CTA head is negative for any stenosis. LABORATORY DATA White count 10,400, hemoglobin 14.7, hematocrit 43.6%, platelets 260,000. Sodium is 135, potassium 3.6, chloride 99, CO2 25, BUN is 25, glucose 166. IMPRESSION Left cerebellar stroke. RECOMMENDATIONS Start aspirin 325 was daily. Monitor cardiac telemetry, rule out atrial fibrillation. Also obtain an echocardiogram to rule out cardiac embolic source. Also recommend checking a lipid panel. MD CAROLANN Goins/ /4:26 PM /6:02 PM
[2017-05-09] MEDS: SODIUM CHLORIDE 0.9% FLUSH 5 ML FLUSH IV FLUSH SCH (21:00)
[2017-05-10] MEDS: DEXAMETHASONE SOD PHOS 4 MG/ML VIAL IV PUSH SCH ×3 (02:59→16:00)
[2017-05-10 04:00] VITALS: BP 139/80; PULSE 55; RESP 16; TEMP 97.5; O2SAT 94
[2017-05-10] MEDS: CHLORHEXIDINE GLUCONATE 2 % 1 PACK (2 CLOTHS) TOP SCH (04:00)
[2017-05-10 04:13] LABS: CHOLESTEROL/ HDL RATIO 3.68 RATIO; CREATININE 1.44 MG/DL (0.60-1.30); HDL CHOLESTEROL 42.1 MG/DL (40.0-60.0)
[2017-05-10] MEDS: MANNITOL 12.5 GM/50 ML VIAL IV SCH ×2 (05:25→10:00)
[2017-05-10] MEDS: INSULIN ASPART SUPPLEMENTAL SCALE SQ SCH ×3 (08:00→16:51)
[2017-05-10 08:40] VITALS: BP 146/81; PULSE 89; RESP 17; TEMP 97.7; O2SAT 95
[2017-05-10] MEDS: PANTOPRAZOLE SOD 40 MG DELAYED RELEASE TAB PO SCH (08:40)
[2017-05-10] MEDS: HYDROCHLOROTHIAZIDE 12.5 MG CAP PO SCH (08:41)
[2017-05-10] MEDS: DOCUSATE SODIUM 50 MG/SENNA 8.6 MG TAB PO SCH (08:41)
[2017-05-10] MEDS: amLODIPine BESYLATE 5 MG TAB PO SCH (08:41)
[2017-05-10] MEDS: ASPIRIN 325 MG TAB PO SCH (08:41)
[2017-05-10 08:42] VITALS: PULSE 79
[2017-05-10] MEDS: SODIUM CHLORIDE 0.9% FLUSH 5 ML FLUSH IV FLUSH SCH (08:47)
[2017-05-10 10:35] VITALS: O2SAT 97
[2017-05-10 12:18] VITALS: BP 154/89; PULSE 65; RESP 18; TEMP 97.4; O2SAT 95
--- NOTE | 2017-05-10 12:44 | HHI.NSPN ---
Note Status Status: Progress Note Interval History Interval History Mr. Segura is a 67 year old male who comes today with complaints of dizziness and gait difficulties. He reports he received flu vaccine on . The following day he complained of nausea and not feeling well. Saturday he had a syncopal episode and was not able to walk. He has since been having difficulty walking and progressive headaches. He denies focal weakness, dysarthria, dysphagia, seizures, fevers or chills. An initial CT Head showed signal changes in the left cerebellar possible mass. An MRI w/wo contrast shows subacute ischemic infarct without evidence of mass lesions, but with mass effect on the fourth ventricle. A neurosurgical evaluation was requested. 05/09: feeling well, headaches much improved. f/u CT Head completed this morning. CTA H/N reports left vertebral?dissection. 05/10: no new complaints, ambulated with PT this morning reports his gait and balance improving. requesting to go home Labs, Micro, & Vital Signs Results Date Time Temp Pulse Resp B/P (MAP) Pulse Ox O2 Delivery O2 Flow Rate FiO2 05/10/17 12:18 97.4 65 18 154/89 (110) 95 05/10/17 10:35 97 05/10/17 08:42 79 05/10/17 08:40 97.7 89 17 146/81 (102) 95 05/10/17 04:00 97.5 55 16 139/80 (99) 94 05/09/17 23:49 97.5 70 16 163/85 (111) 97 05/09/17 20:50 Room Air 05/09/17 20:47 97.6 80 18 152/91 (111) 96 05/09/17 18:00 94 05/09/17 16:00 97.5 90 20 139/82 (101) 97 05/09/17 16:00 89 05/09/17 14:00 89 Constitutional Vital Signs Date Time Temp Pulse Resp B/P (MAP) Pulse Ox O2 Delivery O2 Flow Rate FiO2 05/10/17 12:18 97.4 65 18 154/89 (110) 95 05/10/17 10:35 97 11/3/17 08:42 79 05/10/17 08:40 97.7 89 17 146/81 (102) 95 05/10/17 04:00 97.5 55 16 139/80 (99) 94 05/09/17 23:49 97.5 70 16 163/85 (111) 97 05/09/17 20:50 Room Air 05/09/17 20:47 97.6 80 18 152/91 (111) 96 05/09/17 18:00 94 05/09/17 16:00 97.5 90 20 139/82 (101) 97 05/09/17 16:00 89 05/09/17 14:00 89 Review of Systems Constitutional: DENIES: Fever, Chills Eyes: DENIES: Blurred vision, Vision loss, Double Vision Ears, nose, mouth, throat: DENIES: Vertigo Cardiovascular: DENIES: Chest pain Gastrointestinal: DENIES: Nausea, Vomiting Neurologic: COMPLAINS OF: Abnormal gait (improving), DENIES: Headache, Localized weakness, Paresthesias, Seizures, Speech Problems Physical Exam Mr. Segura is alert, awake and oriented to time, place and person. Speech is fluent. Follows commands well. Cranial nerve examination demonstrates the pupils to be equal, round, and reactive to light. Extra-ocular movements are intact. Facial motor and sensory function are normal and symmetrical. Gross hearing is intact, bilaterally. The uvula is midline and elevates symmetrically with the soft palate. Sternocleidomastoid and trapezius muscles have normal and symmetrical strength. Other cranial nerves are intact. Neck is soft and supple. Cervical spine has a full range of motion in anterior flexion, extension, lateral bending, and rotation without pain. There is no tenderness to palpation to the spinous processes or paraspinal muscles. Muscle testing reveals normal bulk and tone overall without rigidity, spasticity , fasciculations, or atrophy. Muscle strength is 5/5 in all muscle groups of both upper extremities including deltoid, biceps, triceps, brachioradialis, wrist extension and display and banner designer. In the lower extremities, strength is 5/5 in both iliopsoas, quadriceps, hamstrings, plantar flexion, dorsiflexion, and extensor hallicus longus. Sensory examination is intact to light touch in both the upper and lower extremities, symmetrically. Deep tendon reflexes are 2+ and symmetrical in the biceps, triceps, and brachioradialis, bilaterally, in the upper extremities. In the lower extremities , the patellar and Achilles are 2+, bilaterally. There is a bilateral plantar flexion response. Hoffmanns sign is negative. There is no clonus or other abnormal reflexes noted. Cerebellar examination is intact on the right side, it shows dysmetria in left upper extremity . Medications Current Medications Current Medications Medications (Trade) Dose Ordered Sig/Monica Route PRN Reason Start Time Stop Time Status Last Admin Dose Admin Sodium Chloride 1,000 ml @ 10 mls/hr Q24H IV 05/08/17 14:31 05/08/17 15:38 Acetaminophen (Tylenol) 650 mg Q6H PRN PO PAIN 1-10 AND/OR FEVER >101F 05/08/17 14:45 Pantoprazole Sodium (Protonix) 40 mg DAILY PO 05/09/17 09:00 05/10/17 08:40 Ondansetron HCl (Zofran Inj) 4 mg Q6H PRN IV PUSH NAUSEA OR VOMITING 05/08/17 14:45 Albuterol/ Ipratropium (Duoneb Neb) 1 ampule Q4HR NEB PRN INH WHEEZING 05/08/17 14:45 Miscellaneous Information 1 Q361D XX 05/08/17 14:45 Chlorhexidine Gluconate (Chlorhexidine 2% Cloth) 3 pack Taper DAILY@04 TOP 05/09/17 04:00 05/05/18 03:59 05/09/17 04:00 Chlorhexidine Gluconate (Chlorhexidine 2% Cloth) 3 pack UNSCH PRN TOP HYGIENIC CARE 05/08/17 14:45 Senna/Docusate Sodium (Alice-Colace) 1 tab BID PO 05/08/17 21:00 05/10/17 08:41 Magnesium Hydroxide (Milk Of Magnesia Liq) 30 ml Q12H PRN PO Mild constipation 05/08/17 14:45 Sennosides (Senokot) 17.2 mg Q12H PRN PO Moderate constipation 05/08/17 14:45 Bisacodyl (Dulcolax Supp) 10 mg DAILY PRN RECTAL SEVERE CONSITIPATION 05/08/17 14:45 Lactulose (Lactulose Liq) 30 ml DAILY PRN PO SEVERE CONSITIPATION 05/08/17 14:45 Dexamethasone Sodium Phosphate (Decadron Inj) 4 mg Q6H IV PUSH 05/08/17 20:00 05/10/17 08:40 Amlodipine Besylate (Norvasc) 5 mg DAILY PO 05/09/17 09:00 05/10/17 08:41 Hydrochlorothiazide (Microzide) 12.5 mg DAILY PO 05/09/17 09:00 05/10/17 08:41 Mannitol (Mannitol Inj) 25 gm Q6H IV 05/08/17 22:00 05/10/17 05:25 IV Flush (NS Flush) 2 ml BID IV FLUSH 05/09/17 21:00 05/10/17 08:47 IV Flush (NS Flush) 2 ml UNSCH PRN IV FLUSH FLUSH AFTER USING IV ACCESS 05/09/17 16:30 Aspirin (Aspirin) 325 mg DAILY PO 05/09/17 16:30 05/10/17 08:41 Insulin Aspart (NovoLOG SUPPLEMENTAL SCALE) 1 ACHS SQ 05/09/17 17:00 Dextrose (D50w (Vial) Inj) 50 ml UNSCH PRN IV PUSH HYPOGLYCEMIA-SEE COMMENTS 05/09/17 16:30 Glucagon (Glucagon Inj) 1 mg UNSCH PRN OTHER HYPOGLYCEMIA-SEE COMMENTS 05/09/17 16:30 Medical Decision Making MDM Remarks 67 y/o male with acute to subacute left cerebellar ischemic infarct, neuro exam stable Plan Plan Remarks neurology consultation - defer stroke work up to them cont neuro checks Physical Therapy Neris Glover May 10, 2017 12:44
[2017-05-10 13:57] LABS: HEMOGLOBIN A1C 7.3 % (4.3-6.0)
--- NOTE | 2017-05-10 14:06 | PD.CAR.PN ---
CVT Progress Note Subjective/Hospital Course: Patient seen full consult dictated Thanks J Objective: Vital Signs Date Time Temp Pulse Resp B/P (MAP) Pulse Ox O2 Delivery O2 Flow Rate FiO2 05/10/17 12:18 97.4 65 18 154/89 (110) 95 05/10/17 10:35 97 05/10/17 08:42 79 05/10/17 08:40 97.7 89 17 146/81 (102) 95 05/10/17 04:00 97.5 55 16 139/80 (99) 94 05/09/17 23:49 97.5 70 16 163/85 (111) 97 05/09/17 20:50 Room Air 05/09/17 20:47 97.6 80 18 152/91 (111) 96 05/09/17 18:00 94 05/09/17 16:00 97.5 90 20 139/82 (101) 97 05/09/17 16:00 89 Labs: Laboratory Tests Test 05/10/17 03:08 05/10/17 04:03 05/10/17 09:58 Blood Urea Nitrogen 36 MG/DL (7-18) Creatinine 1.44 MG/DL (0.60-1.30) Random Glucose 199 MG/DL (74-106) Calcium Level 9.0 MG/DL (8.5-10.1) Sodium Level 134 MEQ/L (136-145) Potassium Level 3.8 MEQ/L (3.5-5.1) Chloride Level 99 MEQ/L (98-107) Carbon Dioxide Level 25.0 MEQ/L (21.0-32.0) Anion Gap 10 MEQ/L (5-15) Estimat Glomerular Filtration Rate 49 ML/MIN (>89) Serum Osmolality 307 MOSM/KG (275-295) 310 MOSM/KG (275-295) Triglycerides Level 57 MG/DL (42-150) Cholesterol Level 155 MG/DL (120-200) LDL Cholesterol 102 MG/DL (0-99) HDL Cholesterol 42.1 MG/DL (40.0-60.0) Cholesterol/HDL Ratio 3.68 RATIO Result Diagram: 05/08/17 1245 05/10/17 0308 Dalia Farris MD May 10, 2017 14:06
--- NOTE | 2017-05-10 15:02 | MB ---
cc: EDNA NG MD DATE OF CONSULTATION: 05/09/2017. 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 HISTORY OF PRESENT ILLNESS: This pleasant 67-year-old gentleman was apparently at home and states that he stood up and then blacked out, fell backwards, could not keep his balance and all this started around four days after he received an influenza vaccine so he thought this was related to the same. The patient in addition was nauseous, vomited and finally he presented to the hospital. The patient denies anything like this in the past. He does have hypertension but that is about it. He has never had surgery. He has kept in fairly good shape. PAST MEDICAL HISTORY: Hypertension. SOCIAL HISTORY: The patient drinks socially but does not smoke. He keeps in fairly good physical condition. REVIEW OF SYSTEMS: His review of systems is now normal. PHYSICAL EXAMINATION: GENERAL: The physical examination reveals a pleasant 67 year old gentleman. HEAD, EYES, EARS, NOSE, THROAT: Normocephalic. No trauma to the head. Pupils at this point are equal and reactive. Extraocular muscles are intact. The patient does not have nystagmus as I am looking at him, although I am not sure if he did have nystagmus at the time of this syncopal episode. NECK: Bilateral carotid pulses. No bruits. No tenderness. CHEST: Bilateral breath sounds. HEART: Regular rhythm. ABDOMEN: Soft. Active bowel sounds. No rebound. No guarding. No masses. EXTREMITIES: Really within normal limits. The patient has good proximal and distal pulses. No vascular deficit. NEUROLOGIC: Neurologic exam is quite normal. The patient is able to stand. He has no lateralization at this time. Motor strength is +5 bilaterally. Sensory is completely preserved. Deep tendon reflexes are normal. Babinski is negative. At this point, the patient is completely asymptomatic. I reviewed laboratory and diagnostic procedures. His carotid arteries are clean. The left vertebral is indeed nearly gone. 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 Why he would develop now a cerebellar infarct is beyond me; however, the patient is now stable. I agree with medical management and neurologic approach and I have nothing to add from the surgical point. Thank you very much for the referral. CRITICAL CARE TIME: Thirty-eight (38) minutes. Dalia PHAN/NIRAV /2:06 PM /2:51 PM
[2017-05-10 17:36] VITALS: BP 138/72; PULSE 82; RESP 18; TEMP 97.6; O2SAT 96
--- NOTE | 2017-05-10 17:58 | HHI.PR ---
Subjective Remarks Patient reports he feels good. He is declining any medication for his blood sugar intolerance. He states has declined metformin the past. He is on diet control and natural herbs. He reports he is going to the bathroom once be discharged home and return to work soon. He denies any headaches visual change nor any weakness or numbness. Objective Vitals Vital Signs Date Time Temp Pulse Resp B/P (MAP) Pulse Ox O2 Delivery O2 Flow Rate FiO2 05/10/17 17:36 97.6 82 18 138/72 (94) 96 05/10/17 12:18 97.4 65 18 154/89 (110) 95 05/10/17 10:35 97 05/10/17 08:42 79 05/10/17 08:40 97.7 89 17 146/81 (102) 95 05/10/17 04:00 97.5 55 16 139/80 (99) 94 05/09/17 23:49 97.5 70 16 163/85 (111) 97 05/09/17 20:50 Room Air 05/09/17 20:47 97.6 80 18 152/91 (111) 96 05/09/17 18:00 94 I/O 05/09/17 05/09/17 05/09/17 05/10/17 05/10/17 05/10/17 07:00 15:00 23:00 07:00 15:00 23:00 Intake Total 1080 ml 100 ml Output Total 1500 ml 750 ml Balance -1500 ml 330 ml 100 ml Intake Oral 1080 ml IV Total 100 ml Output Urine Total 1500 ml 750 ml # Voids 2 3 # Bowel Movements 1 2 Result Diagram: 05/08/17 1245 05/10/17 0308 Other Results Microbiology Date/Time Source Procedure Growth Status 05/08/17 14:11 Urine Clean Catch Urine Culture - Final Proteus Mirabilis Complete Imaging Last Impressions Head CT 05/09/17 0600 Signed Impressions: Service Date/Time: May 03:52 - CONCLUSION: Evolving left cerebellar stroke. No new acute findings Terry Martini MD Neck CTA 05/08/17 0000 Signed Impressions: Service Date/Time: May 03:50 - CONCLUSION: No significant carotid stenosis. Abnormal appearance of the left vertebral artery which may be chronic/developmental or may reflect dissection. Terry Martini MD Head CTA 05/08/17 0000 Signed Impressions: Service Date/Time: May 03:50 - CONCLUSION: No acute [place] vascular findings Terry Martini MD Brain MRI 05/08/17 0000 Signed Impressions: Service Date/Time: Monday, May 08, 2017 15:07 - CONCLUSION: Subacute infarct left cerebellar hemisphere PICA distribution with minimal mass effect on the fourth ventricle. MRI could be used to follow to assure this is resolving as an infarct. Matheus Walsh MD FACR Objective Remarks GENERAL: This is a well-nourished, well-developed patient, in no apparent distress. CARDIOVASCULAR: Regular rate and rhythm RESPIRATORY: Clear to auscultation. Breath sounds equal bilaterally. No wheezes , rales, or rhonchi. GASTROINTESTINAL: Abdomen soft, non-tender, nondistended. Normal active bowel sounds MUSCULOSKELETAL: Extremities without clubbing, cyanosis, or edema. NEURO: Alert & Oriented x4 to person, place, time, situation. Moves all ext x4 A/P Problem List: (1) Cerebellar infarction ICD Code: I63.9 - Cerebral infarction, unspecified Status: Acute Assessment and Plan 1. Acute cerebellar infarction/stroke- status post neurology and neurosurgery evaluation - patient has been neurologically stable overnight. Continue aspirin and workup evaluation. 2-D echo showed no thrombus, statin started with LDL levels reviewed at 102. MRA neck showed some abnormality in the left vertebral artery; vascular surgery consult for complete evaluation and felt not a surgical case and may be congenital. 2. Diabetes mellitus type 2-, hemoglobin 7.0 patient declining medication and continues to want to do diet control he declined metformin. Patient counseled this is a risk factor for recurrent strokes. He is to follow with his primary care physician as he is high risk for repeat stroke without appropriate controlled diabetes. 3. Hypertension, essential - home antihypertensives restarted and likely will need to increase dosing upon discharge home. 4. Urinary Tract infection, Proteus asymptomatic as to start Keflex. 5. DVT prophylaxis SCDs. Discharge Planning Discharged to home with outpatient follow-up with neurology and primary care physician Radha Ortiz MD May 10, 2017 17:58
[2017-05-10] MEDS ORDERED: ASPI325T PO (18:10)
[2017-05-10] MEDS ORDERED: PRAV20TA PO (18:10)
[2017-05-10] MEDS ORDERED: CEPH500C PO (18:10)
[2017-05-10] MEDS ORDERED: AMLO5 PO (18:10)
--- NOTE | 2017-05-10 18:12 | HHI.DS ---
Discharge Summary Admission Date May 08, 2017 at 14:27 Discharge Date: May 10, 2017 Admitting Diagnosis mass left cerebellum (1) Cerebellar infarction ICD Code: I63.9 - Cerebral infarction, unspecified Status: Acute Procedures none Brief History - From Admission Obtained from attendings H & P 69 y/o man has developed syncope and dizziness associated with a headache. CT head reveals large left posterior fossa mass. CBC/BMP: 05/08/17 1245 05/10/17 0308 Significant Findings Laboratory Tests Test 05/08/17 12:45 05/08/17 14:11 05/08/17 18:51 05/09/17 04:27 Mean Corpuscular Volume 76.9 FL (80.0-100.0) Mean Corpuscular Hemoglobin 26.0 PG (27.0-34.0) Neutrophils (%) (Auto) 80.6 % (16.0-70.0) Neutrophils # (Auto) 8.4 TH/MM3 (1.8-7.7) Blood Urea Nitrogen 23 MG/DL (7-18) 25 MG/DL (7-18) Creatinine 1.48 MG/DL (0.60-1.30) Random Glucose 250 MG/DL (74-106) 166 MG/DL (74-106) Total Protein 8.6 GM/DL (6.4-8.2) Albumin 3.3 GM/DL (3.4-5.0) Sodium Level 132 MEQ/L (136-145) 135 MEQ/L (136-145) Potassium Level 3.3 MEQ/L (3.5-5.1) Estimat Glomerular Filtration Rate 48 ML/MIN (>89) 56 ML/MIN (>89) Troponin I LESS THAN 0.02 NG/ML Urine Turbidity HAZY (CLEAR) Urine Occult Blood SMALL (NEG) Urine Leukocyte Esterase LARGE (NEG) Urine RBC 17 /hpf (0-3) Urine WBC 161 /hpf (0-5) Urine Bacteria FEW /hpf (NONE) Serum Osmolality 312 MOSM/KG (275-295) 307 MOSM/KG (275-295) Test 05/09/17 08:00 05/09/17 10:00 05/09/17 15:22 05/09/17 21:10 Serum Osmolality 303 MOSM/KG (275-295) 308 MOSM/KG (275-295) 306 MOSM/KG (275-295) Test 05/10/17 03:08 05/10/17 04:03 05/10/17 09:58 05/10/17 16:34 Blood Urea Nitrogen 36 MG/DL (7-18) Creatinine 1.44 MG/DL (0.60-1.30) Random Glucose 199 MG/DL (74-106) Sodium Level 134 MEQ/L (136-145) Estimat Glomerular Filtration Rate 49 ML/MIN (>89) Serum Osmolality 307 MOSM/KG (275-295) 310 MOSM/KG (275-295) 309 MOSM/KG (275-295) LDL Cholesterol 102 MG/DL (0-99) Hemoglobin A1c 7.3 % (4.3-6.0) Imaging Last Impressions Head CT 05/09/17 0600 Signed Impressions: Service Date/Time: May 03:52 - CONCLUSION: Evolving left cerebellar stroke. No new acute findings Terry Martini MD Neck CTA 05/08/17 0000 Signed Impressions: Service Date/Time: May 03:50 - CONCLUSION: No significant carotid stenosis. Abnormal appearance of the left vertebral artery which may be chronic/developmental or may reflect dissection. Terry Martini MD Head CTA 05/08/17 0000 Signed Impressions: Service Date/Time: May 03:50 - CONCLUSION: No acute [place] vascular findings Terry Martini MD Brain MRI 05/08/17 0000 Signed Impressions: Service Date/Time: Monday, May 08, 2017 15:07 - CONCLUSION: Subacute infarct left cerebellar hemisphere PICA distribution with minimal mass effect on the fourth ventricle. MRI could be used to follow to assure this is resolving as an infarct. Matheus Walsh MD FACR PE at Discharge GENERAL: This is a well-nourished, well-developed patient, in no apparent distress. CARDIOVASCULAR: Regular rate and rhythm RESPIRATORY: Clear to auscultation. Breath sounds equal bilaterally. No wheezes , rales, or rhonchi. GASTROINTESTINAL: Abdomen soft, non-tender, nondistended. Normal active bowel sounds MUSCULOSKELETAL: Extremities without clubbing, cyanosis, or edema. NEURO: Alert & Oriented x4 to person, place, time, situation. Moves all ext x4 Hospital Course 67-year-old white male with a history hypertension and glucose intolerance with admitted for headache and was found have cerebellar infarction. In addition patient was found to have an abnormal left vertebral artery which was evaluated by vascular surgeon with no recommendations for any future surgical intervention. He does have history of glucose intolerance which he declined taking medications in the past including metformin and states that he is admitted about continuing with diet and natural herbal supplements. He was started on a statin. He was also found to have a urinary tract infection, Proteus which was treated by Keflex. He remains neurologically stable and has evaluated by physical therapy who states patient has had independent gait with no needs upon discharge. He is 2-D echo showed no thrombus. He remains in sinus rhythm on telemetry. He was evaluated by both neurosurgery and neurology during this hospitalization. At this time, patient is getting maximum benefit from hospitalization is ready to be discharged to home. Pt Condition on Discharge: Good Discharge Disposition: Discharge Home Discharge Time: <= 30 minutes Discharge Instructions DIET: Follow Instructions for: Heart Healthy Diet, Diabetic Diet Activities you can perform: Regular-No Restrictions Follow up Referrals: Neurology with Niko Caro PhD PCP Follow-up New Medications: Amlodipine (Norvasc) 5 Mg Tab 5 MG PO BID for Blood Pressure Management, #60 TAB Aspirin (Aspirin) 325 Mg Tab 325 MG PO DAILY for Blood Clot Prevention, #30 TAB Cephalexin (Cephalexin) 500 Mg Cap 500 MG PO Q8HR for Infection, #15 CAP Pravastatin (Pravachol) 20 Mg Tab 20 MG PO HS for Cholesterol Management, #30 TAB Continued Medications: Hydrochlorothiazide (Hydrochlorothiazide) 12.5 Mg Tab 12.5 MG PO DAILY, #90 CAP 1 Refill Discontinued Medications: Amlodipine (Amlodipine) 5 Mg Tab 5 MG PO DAILY for Blood Pressure Management, #90 CAP 1 Refill Radha Ortiz MD May 10, 2017 18:12
[2017-05-10] MEDS ORDERED: PRAVASTATIN SOD 20 MG TAB PO ONE (18:15)
[2017-05-10] MEDS ORDERED: CEPHALEXIN MONOHYDRATE 500 MG CAP PO ONE (18:15)
--- NOTE | 2017-05-10 18:46 | HHI.PR ---
Review/Management Diagnosis cerebellar cva--exam is stable abnormal vertebral on cta--could be hypoplastic since . No definite dissection, but even if it were would still recommend same therapy--asa. Also continue statin for elevated LDL Ok from neurology standpoint to discharge when ok with primary service. Please have him follow up with me in office in 2-3 weeks. Diagnosis/Plan: Subjective Subjective Comments No acute events reported balance is back to normal and he had been ambulating in [place] without difficulty Active Medications Current Medications Medications (Trade) Dose Ordered Sig/Monica Route Start Time Stop Time Status Last Admin Sodium Chloride 1,000 ml @ 10 mls/hr Q24H IV 05/08/17 14:31 05/08/17 15:38 (Tylenol) 650 mg Q6H PRN PO 05/08/17 14:45 (Protonix) 40 mg DAILY PO 05/09/17 09:00 05/10/17 08:40 (Zofran Inj) 4 mg Q6H PRN IV PUSH 05/08/17 14:45 (Duoneb Neb) 1 ampule Q4HR NEB PRN INH 05/08/17 14:45 Miscellaneous Information 1 Q361D XX 05/08/17 14:45 (Chlorhexidine 2% Cloth) 3 pack Taper DAILY@04 TOP 05/09/17 04:00 05/05/18 03:59 05/09/17 04:00 (Chlorhexidine 2% Cloth) 3 pack UNSCH PRN TOP 05/08/17 14:45 (Alice-Colace) 1 tab BID PO 05/08/17 21:00 05/10/17 08:41 (Milk Of Magnesia Liq) 30 ml Q12H PRN PO 05/08/17 14:45 (Senokot) 17.2 mg Q12H PRN PO 05/08/17 14:45 (Dulcolax Supp) 10 mg DAILY PRN RECTAL 05/08/17 14:45 (Lactulose Liq) 30 ml DAILY PRN PO 05/08/17 14:45 (Decadron Inj) 4 mg Q6H IV PUSH 05/08/17 20:00 05/10/17 16:00 (Microzide) 12.5 mg DAILY PO 05/09/17 09:00 05/10/17 08:41 (Mannitol Inj) 25 gm Q6H IV 05/08/17 22:00 05/10/17 05:25 (NS Flush) 2 ml BID IV FLUSH 05/09/17 21:00 05/10/17 08:47 (NS Flush) 2 ml UNSCH PRN IV FLUSH 05/09/17 16:30 (Aspirin) 325 mg DAILY PO 05/09/17 16:30 05/10/17 08:41 (NovoLOG SUPPLEMENTAL SCALE) 1 ACHS SQ 05/09/17 17:00 (D50w (Vial) Inj) 50 ml UNSCH PRN IV PUSH 05/09/17 16:30 (Glucagon Inj) 1 mg UNSCH PRN OTHER 05/09/17 16:30 (Norvasc) 5 mg BID PO 05/10/17 21:00 (Pravachol) 20 mg HS PO 05/10/17 21:00 (Keflex) 500 mg Q8HR PO 05/10/17 22:00 Allergies Allergies Coded Allergies No Known Allergies (Verified Allergy, Unknown, 05/08/17) Exam I&O / VS Vital Signs Date Time Temp Pulse Resp B/P (MAP) Pulse Ox O2 Delivery O2 Flow Rate FiO2 05/10/17 17:36 97.6 82 18 138/72 (94) 96 05/10/17 12:18 97.4 65 18 154/89 (110) 95 05/10/17 10:35 97 05/10/17 08:42 79 05/10/17 08:40 97.7 89 17 146/81 (102) 95 05/10/17 04:00 97.5 55 16 139/80 (99) 94 05/09/17 23:49 97.5 70 16 163/85 (111) 97 05/09/17 20:50 Room Air 05/09/17 20:47 97.6 80 18 152/91 (111) 96 Exam Comments alert, speech normal. CN normal MOTOR 5/5 BUE and BLE Gait normal cerebellar--no dysmetria Objective Micro and Labs Laboratory Tests Test 05/09/17 21:10 05/10/17 03:08 05/10/17 04:03 05/10/17 09:58 Serum Osmolality 306 307 310 Blood Urea Nitrogen 36 Creatinine 1.44 Random Glucose 199 Calcium Level 9.0 Sodium Level 134 Potassium Level 3.8 Chloride Level 99 Carbon Dioxide Level 25.0 Anion Gap 10 Estimat Glomerular Filtration Rate 49 Triglycerides Level 57 Cholesterol Level 155 LDL Cholesterol 102 HDL Cholesterol 42.1 Cholesterol/HDL Ratio 3.68 Hemoglobin A1c 7.3 Test 05/10/17 16:34 Serum Osmolality 309 Date/Time Source Procedure Growth Status 05/08/17 14:11 Urine Clean Catch Urine Culture - Final Proteus Mirabilis Complete Niko Caro PhD May 10, 2017 18:46
[2017-05-10] MEDS ORDERED: PRAVASTATIN SOD 20 MG TAB PO SCH (21:00)
[2017-05-10] MEDS ORDERED: amLODIPine BESYLATE 5 MG TAB PO SCH (21:00)
[2017-05-10] MEDS ORDERED: CEPHALEXIN MONOHYDRATE 500 MG CAP PO SCH (22:00)
--- NOTE | 2017-05-11 10:40 | PQ ---
Physician Query Response Document PATIENT: [employer] : 1950 ADMIT DATE: 05/08/2017 2:27 PM DISCH DATE: 05/10/2017 7:10 PM RESPONDING PROVIDER #: gerri QUERY TEXT: Clarification of Clinical Diagnostic Findings Based on your medical judgment, can you further clarify which, if any, of the following this condit ion is intended to indicate: ? Compression of the brain ? Cerebral edema ? Other (*please specify) ? Unable to determine (*please explain) The patient's Clinical Indicators include: Documentation in the medical record indicates that this patient has been admitted with or diagnosed a s having: cerebral infarction and Imaging studies w CT head left cerebellar hemisphere is again noted with mil d mass effect upon the adjacent vermis and brainstem. [place] Mannitol IV AND Decadron IV Query created by: Rakel Parsons on 05/09/2017 3:08 PM RESPONSE TEXT: Acute ischemic infarction of the cerebellum with edema. Electronically signed by: Shilo Chu MD 05/11/2017 10:36 AM
--- NOTE | 2017-05-11 10:40 | PQ ---
Physician Query Response Document PATIENT: [employer] : 1950 ADMIT DATE: 05/08/2017 2:27 PM DISCH DATE: 05/10/2017 7:10 PM RESPONDING PROVIDER #: gerri QUERY TEXT: Clarification of Clinical Diagnostic Findings Based on your medical judgment, can you further clarify which, if any, of the following this condit ion is intended to indicate: ? Compression of the brain ? Cerebral edema ? Other (*please specify) ? Unable to determine (*please explain) The patient's Clinical Indicators include: Documentation in the medical record indicates that this patient has been admitted with or diagnosed a s having: cerebral infarction and Imaging studies w CT head left cerebellar hemisphere is again noted with mil d mass effect upon the adjacent vermis and brainstem. [place] Mannitol IV AND Decadron IV Query created by: Rakel Parsons on 05/09/2017 3:08 PM RESPONSE TEXT: Acute ischemic infarction of the cerebellum with edema. Electronically signed by: Shilo Chu MD 05/11/2017 10:36 AM
--- NOTE | 2017-05-11 10:40 | PQ ---
Physician Query Response Document PATIENT: [employer] : 1950 ADMIT DATE: 05/08/2017 2:27 PM DISCH DATE: 05/10/2017 7:10 PM RESPONDING PROVIDER #: gerri QUERY TEXT: Clarification of Clinical Diagnostic Findings Based on your medical judgment, can you further clarify which, if any, of the following this condit ion is intended to indicate: ? Compression of the brain ? Cerebral edema ? Other (*please specify) ? Unable to determine (*please explain) The patient's Clinical Indicators include: Documentation in the medical record indicates that this patient has been admitted with or diagnosed a s having: cerebral infarction and Imaging studies w CT head left cerebellar hemisphere is again noted with mil d mass effect upon the adjacent vermis and brainstem. [place] Mannitol IV AND Decadron IV Query created by: Rakel Parsons on 05/09/2017 3:08 PM RESPONSE TEXT: Acute ischemic infarction of the cerebellum with edema. Electronically signed by: Shilo Chu MD 05/11/2017 10:36 AM
== END 2017-05-10 19:10 | disposition home or self-care (01) | DRG 64 ==
LOC: NEPE 11:54 → NEDA 14:27 → N03B 16:39 → N05B 05-09 19:08
PROVIDERS: ADMIT Family Medicine; ATTEND Family Medicine
DX: I63.9 Cerebral infarction, unspecified (principal); G93.6 Cerebral edema; N39.0 Urinary tract infection, site not specified; I10 Essential (primary) hypertension; B96.4 Proteus (mirabilis) (morganii) as the cause of diseases classified elsewhere; E11.9 Type 2 diabetes mellitus without complications; M54.2 Cervicalgia; G89.29 Other chronic pain; R42 Dizziness and giddiness; Z87.891 Personal history of nicotine dependence
CPT/HCPCS: 70450; 70496; 70498; 70553; 80048; 80053; 80061; 81001; 82550; 82948; 83036; 83735; 83930; 84100; 84484; 85025; 85610; 85730; 87077; 87086; 87186; 87641; 93005; 93306; 94003; 96361; 96374; 96375; A9579; J1100; J1200; J2150; J2765; J7030; Q9967